=== PATIENT | female | born 1960 | race Caucasian/White ===

== ENCOUNTER 2018-01-15 16:06 | Emergency (ER) | payer SELFPAY ==
[~2018-01-15] VITALS: Ht 167.6 cm; Wt 61.8 kg
[~2018-01-15 16:06] MED LIST: HYDR-3533 PO; IBUP600 PO; Z.0.NO CURRENT MEDS
[2018-01-15 16:08] VITALS: BP 167/83; PULSE 91; RESP 16; TEMP 97.9; O2SAT 97
[2018-01-15 16:40] LABS: BILIRUBIN, URINE NEG (NEG); BLOOD, URINE LARGE (NEG); GLUCOSE,URINE NEG (NEG); KETONE, URINE NEG (NEG); NITRITE,URINE POS (NEG); URINE COLOR YELLOW (YELLW/STRAW); URINE LEUKOCYTE ESTERASE SMALL (NEG)
[2018-01-15 16:51] LABS: BACTERIA, URINE MOD /hpf
[2018-01-15] MEDS ORDERED: PHEN0.4T PO (16:58)
[2018-01-15] MEDS ORDERED: BACT800T5 PO (16:58)
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
== END 2018-01-15 17:21 | disposition home or self-care (01) ==
LOC: PHED 16:06
DX: N30.91 Cystitis, unspecified with hematuria (principal); B96.1 Klebsiella pneumoniae [K. pneumoniae] as the cause of diseases classified elsewhere; Z72.0 Tobacco use
CPT/HCPCS: 81001; 87077; 87086; 87186; 99283

== ENCOUNTER 2018-03-02 20:27 | Emergency (ER) | payer SELFPAY ==
[~2018-03-02] VITALS: Ht 167.6 cm; Wt 60.0 kg
[~2018-03-02 20:27] MED LIST changes: +BACT800T5 PO; -HYDR-3533 PO; -IBUP600 PO; +PHEN0.4T PO; -Z.0.NO CURRENT MEDS
[2018-03-02 20:32] VITALS: BP 138/73; PULSE 88; RESP 16; TEMP 98.8; O2SAT 98
--- NOTE | 2018-03-02 21:07 | PD ---
HPI Chief Complaint: Complaint Time Seen by Provider: 21:07 Travel History International Travel<30 days: No Contact w/Intl Traveler<30days: No Traveled to known affect area: No History of Present Illness HPI 57-year-old female came to the emergency room with history of dysuria, frequency and urgency. Patient says that she has had multiple UTIs and this feels like another UTI. This started this morning. She has been uncomfortable with it. Vital signs otherwise stable. [facility] Past Medical History Narrative Medical List of her past medical, surgical, social and family history is reviewed from the nursing note Genitourinary: Yes (UTI ) Influenza Vaccination: No Social History Alcohol Use: Yes Tobacco Use: Yes Substance Use: No Allergies-Medications (Allergen,Severity, Reaction): Coded Allergies: No Known Allergies (Unverified Adverse Reaction, Unknown, 03/02/18) Comments No known drug allergies. Reported Meds & Prescriptions Reported Meds & Active Scripts Active Macrobid (Nitrofurantoin Monoh/Nitrofur Macro) 100 Mg Cap 100 Mg PO BID 10 Days Narrative Medication List of her home medications reviewed from the nursing note. Review of Systems Except as stated in HPI: all other systems reviewed are Neg Genitourinary: Positive: Urgency, Frequency, Dysuria Physical Exam Narrative GENERAL: Awake, alert, anxious SKIN: Focused skin assessment warm/dry. HEAD: Atraumatic. Normocephalic. EYES: Pupils equal and round. No scleral icterus. No injection or drainage. ENT: No nasal bleeding or discharge. Mucous membranes pink and moist. NECK: Trachea midline. No JVD. CARDIOVASCULAR: Regular rate and rhythm. No murmur appreciated. RESPIRATORY: No accessory muscle use. Clear to auscultation. Breath sounds equal bilaterally. GASTROINTESTINAL: Abdomen soft, non-tender, nondistended. Hepatic and splenic margins not palpable. MUSCULOSKELETAL: No obvious deformities. No clubbing. No cyanosis. No edema. NEUROLOGICAL: Awake and alert. No obvious cranial nerve deficits. Motor grossly within normal limits. Normal speech. PSYCHIATRIC: Appropriate mood and affect; insight and judgment normal. Data Data Last Documented VS Vital Signs Date Time Temp Pulse Resp B/P (MAP) Pulse Ox O2 Delivery O2 Flow Rate FiO2 03/02/18 20:32 98.8 88 16 138/73 (94) 98 Orders Orders Urinalysis - C+S If Indicated (03/02/18 21:16) Phenazopyridine (Pyridium) (03/02/18 21:30) Nitrofurantoin Monohyd Macrocr (Macrobid (03/02/18 21:30) Urine Culture (03/02/18 21:36) Ed Discharge Order (03/02/18 22:09) Labs Laboratory Tests Test 03/02/18 21:36 Urine Color YELLOW Urine Turbidity CLOUDY Urine pH 6.0 Urine Specific [place] 1.022 Urine Protein 100 mg/dL Urine Glucose (UA) NEG mg/dL Urine Ketones TRACE mg/dL Urine Occult Blood LARGE Urine Nitrite POS Urine Bilirubin NEG Urine Urobilinogen LESS THAN 2.0 MG/DL Urine Leukocyte Esterase LARGE Urine RBC /hpf Urine WBC /hpf Urine WBC Clumps FEW Urine Squamous Epithelial Cells 2 /hpf Urine Bacteria MANY /hpf Urine Mucus FEW /lpf Microscopic Urinalysis Comment CULTURE INDICATED MDM Medical Decision Making Medical Screen Exam Complete: Yes Emergency Medical Condition: Yes Medical Record Reviewed: Yes Differential Diagnosis Cystitis, Narrative Course 10:18 PM UA is back and highly suggestive of UTI. She has been given p.o. Macrobid and p.o. Pyridium. I am comfortable discharging her home. Diagnosis Primary Impression: Hemorrhagic cystitis Referrals: Primary Care Physician Additional Instructions: Take medication as per the prescription direction. Drink lots of fluid and cranberry juice. You can take Tylenol/Motrin/Advil/ibuprofen in addition for pain relief. Return to the ER if condition worsens or any other new concerns. Med/Other Pt SpecificInfo: Prescription(s) given Scripts Nitrofurantoin Monohydrate Macrocrystals (Macrobid) 100 Mg Cap 100 MG PO BID for Infection for 10 Days, #20 CAP 0 Refills Prov: Glo Jiménez MD 03/02/18 Disposition: 01 DISCHARGE HOME Condition: Stable Glo Jiménez MD Mar 02, 2018 21:07
[2018-03-02] MEDS ORDERED: PHENAZOPYRIDINE HCL 100 MG TAB PO ONE (21:30)
[2018-03-02] MEDS ORDERED: NITROFURANTOIN MONOHYD MACROCR 100 MG CAP PO ONE (21:30)
[2018-03-02 22:03] LABS: BACTERIA, URINE MANY /hpf; BILIRUBIN, URINE NEG (NEG); BLOOD, URINE LARGE (NEG); GLUCOSE,URINE NEG (NEG); KETONE, URINE TRACE mg/dL (NEG); MUCUS URINE FEW /lpf (OCC); NITRITE,URINE POS (NEG); SQUAMOUS EPITHELIAL CELL URINE 2 /hpf (0-5); URINE COLOR YELLOW (YELLW/STRAW); URINE LEUKOCYTE ESTERASE LARGE (NEG); WHITE BLOOD CELL CLUMPS FEW
[2018-03-02] MEDS ORDERED: MACR100C2 PO (22:19)
== END 2018-03-02 22:33 | disposition home or self-care (01) ==
LOC: NEPD 20:27
DX: N30.91 Cystitis, unspecified with hematuria (principal); B96.1 Klebsiella pneumoniae [K. pneumoniae] as the cause of diseases classified elsewhere; Z72.0 Tobacco use; Z87.440 Personal history of urinary (tract) infections
CPT/HCPCS: 81001; 87077; 87086; 87186; 99283

== ENCOUNTER 2018-06-01 10:43 | Inpatient (IN) ==
[2018-06-01] MEDS ORDERED: Piperacil/Tazo 3.375 GM Premix 50 ML IV.SIG ONE (10:58)
[2018-06-01] MEDS ORDERED: Sod Chloride 0.9% Inj 1,000 ML IV.SIG ONE ×2 (10:58→13:27)
[2018-06-01] MEDS ORDERED: Vancomycin Inj 1 GM/200 ML PIGGYBACK IV.SIG ONE (10:58)
--- NOTE | 2018-06-01 11:20 | XR ---
EXAM DATE: 06/01/2018 11:15 AM EDT AGE/SEX: 57 years / Female INDICATIONS: Shortness of breath. Fever. CLINICAL DATA: This is the patient's initial encounter. Patient reports that signs and symptoms have been present for 1 day and indicates a pain score of Nonresponsive. MEDICAL/SURGICAL HISTORY: None. . ORIF Left tibia. ORIF right humerus. COMPARISON: No prior exams available for comparison. FINDINGS: A single AP view of the chest demonstrates interstitial densities without evidence of mass, infiltrat e or effusion. The cardiomediastinal contours are unremarkable. Osseous structures are intact. [place] te and screws along the right humerus. CONCLUSION: Chronic appearing interstitial densities. No acute cardiopulmonary disease Electronically signed by: Nitin Cisneros MD 06/01/2018 11:19 AM EDT
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
[2018-06-01] MEDS ORDERED: Vancomycin Inj 1,000 MG in Sodium Chlor 0.9% Inj 250 ML IV.SIG ONE (12:00)
[2018-06-01 12:02] LABS: Baso # (Auto) 0.1 th/mm3 (0.0-0.2); Baso % (Auto) 0.4 % (0.0-2.0); Eos # (Auto) 0.5 th/mm3 (0.0-0.4); Eos % (Auto) 2.9 % (0.0-4.0); Hemoglobin 11.5 gm/dL (11.6-15.3); Lymph # (Auto) 0.3 th/mm3 (1.0-4.8); Lymph % (Auto) 2.2 % (9.0-44.0); Mean Corpuscular HGB Conc 33.9 % (32.0-36.0); Mean Corpuscular Hemoglobin 31.2 pg (27.0-34.0); Mean Corpuscular Volume 91.9 fL (80.0-100.0); Mean Platelet Volume 10.3 fL (7.0-11.0); Mono # (Auto) 0.2 th/mm3 (0.0-0.9); Mono % (Auto) 1.1 % (0.0-8.0); Neut # (Auto) 14.6 th/mm3 (1.8-7.7); Neut % (Auto) 93.4 % (16.0-70.0); Platelet Count 133 th/mm3 (150-450); Red Cell Distribution Width 13.6 % (11.6-17.2); White Blood Count 15.7 th/mm3 (4.0-11.0)
[2018-06-01 12:05] LABS: Bacteria,Urine Few /hpf; Bilirubin,Urine Negative (Negative); Clarity,Urine Hazy (Clear); Color,Urine Yellow (Yellw/Straw); Glucose,Urine (UA) Negative (Negative); Hyaline Casts,Urine 3 /lpf (0-3); Leukocyte Esterase,Urine Trace (Negative); Nitrite,Urine Negative (Negative); Specific Gravity,Urine 1.015 (1.002-1.035); Squamous Epithelial Cell,Urine 1 /hpf (0-5)
[2018-06-01 12:14] LABS: Alanine Aminotransferase 23 U/L (10-53); Albumin 2.7 g/dL (3.4-5.0); Alkaline Phosphatase 159 U/L (45-117); Anion Gap 11 meq/L (5-15); Aspartate Aminotransferase 31 U/L (15-37); Blood Urea Nitrogen 54 mg/dL (7-18); Calcium 8.5 mg/dL (8.5-10.1); Carbon Dioxide 23.5 meq/L (21.0-32.0); Chloride 102 meq/L (98-107); Glomerular Filtration Rate 10 mL/min (>89); Glucose,Random 73 mg/dL (74-106); Potassium 4.5 meq/L (3.5-5.1); Sodium 136 meq/L (136-145); Total Protein 6.4 g/dL (6.4-8.2)
--- NOTE | 2018-06-01 12:22 | CT ---
EXAM DATE: 06/01/2018 12:19 PM EDT AGE/SEX: 57 years / Female INDICATIONS: Altered mental status. CLINICAL DATA: This is the patient's initial encounter. Patient reports that signs and symptoms have been present for 1 day and indicates a pain score of Nonresponsive. MEDICAL/SURGICAL HISTORY: Non-responsive. Non-responsive. RADIATION DOSE: 38.09 CTDI (mGy) COMPARISON: No prior exams available for comparison. TECHNIQUE: CT of the head without contrast. Using automated exposure control and adjustment of the mA and/or kV according to patient size, radiation dose was kept as low as reasonably achievable to ob tain optimal diagnostic quality images. DICOM format image data is available electronically for revi ew and comparison. FINDINGS: Cerebrum: The ventricles are normal for age. No evidence of midline shift, mass lesion, hemorrhage or acute infarction. No extraaxial fluid collections are seen. Posterior Fossa: The cerebellum and brainstem are intact. The 4th ventricle is midline. Questionabl e lesion right cerebellopontine angle. Extracranial: The visualized portion of the orbits is intact. Skull: The calvaria is intact. No evidence of skull fracture. CONCLUSION: 1. No acute intracranial evaluate. 2. Questionable lesion in the right cerebellopontine angle. Consider outpatient contrasted MRI for f urther evaluation. . Electronically signed by: Nitin Cisneros MD 06/01/2018 12:20 PM EDT
--- NOTE | 2018-06-01 12:43 | CT ---
EXAM DATE: 06/01/2018 12:24 PM EDT AGE/SEX: 57 years / Female INDICATIONS: Right lower abdomen pain today. CLINICAL DATA: This is the patient's initial encounter. Patient reports that signs and symptoms have been present for 1 day and indicates a pain score of Nonresponsive. MEDICAL/SURGICAL HISTORY: Non-responsive. Non-responsive. RADIATION DOSE: 11.42 CTDI (mGy) COMPARISON: No prior exams available for comparison. TECHNIQUE: Multiple contiguous axial images were obtained through the abdomen. Images were obtained using multiple row detector helical technique. Using automated exposure control and adjustment of the mA and/or kV according to patient size, radiation dose was kept as low as reasonably achievable to o btain optimal diagnostic quality images. DICOM format image data is available electronically for rev iew and comparison. FINDINGS: Lower Lungs: Minimal bibasilar densities. Liver: The liver has a homogeneous density without space-occupying lesion. There is no dilation of th e biliary tree. Spleen: Homogeneous density without enlargement. Pancreas: Unremarkable without mass or calcification. Kidneys: Normal in size and shape. No evidence of mass or hydronephrosis on the left. Hydronephrosis right kidney secondary to a ureteropelvic junction calculus measuring 1 cm.. Adrenal Glands: Unremarkable. Aorta: The aorta and proximal iliac vessels are grossly unremarkable without aneurysmal dilation. Bowel/Mesentery: The bowel loops are grossly unremarkable. The cecum and sigmoid colon have a normal configuration. Abdominal Wall: Intact. Retroperitoneum: No evidence of adenopathy in the retrocrural, para-aortic, or deep pelvic regions. Bladder: Contours are smooth. Reproductive Organs: No abnormal masses or calcifications seen. Inguinal: The inguinal region is unremarkable without evidence of adenopathy. Bony Structures: Unremarkable. CONCLUSION: 1. Obstructive uropathy on the right secondary to a ureteropelvic junction calculus measuring 1 cm. 2. Minimal bibasilar densities likely atelectasis. Electronically signed by: Nitin Cisneros MD 06/01/2018 12:42 PM EDT
[2018-06-01 13:02] LABS: Activated Partial Thrombo Time 37.3 sec (24.3-30.1); INR 1.5 Ratio; Prothrombin Time 14.7 sec (9.8-11.6)
[2018-06-01 13:18] LABS: Lymphocytes 1 % (9-44); Monocytes 1 % (0-8); Platelet Morphology Normal (Normal); Toxic Granulation 1+; Toxic Vacuolation Present
[2018-06-01 13:19] LABS: Acanthocytes Occ; Burr Cells 2+
[2018-06-01] MEDS ORDERED: Sod Chloride 0.9% Inj 1,000 ML IV.CONT SCH ×2 (14:08→15:25)
--- NOTE | 2018-06-01 14:18 | NM ---
EXAM DATE: 06/01/2018 2:11 PM EDT AGE/SEX: 57 years / Female INDICATIONS: Shortness of breath for one day. CLINICAL DATA: This is the patient's initial encounter. Patient reports that signs and symptoms have been present for 1 day and indicates a pain score of 0/10. MEDICAL/SURGICAL HISTORY: Non-responsive. Non-responsive. COMPARISON: [facility], CHEST 1V SINGLE AP, 06/01/2018. . No external comparison. DOSE: 1.05 mCi Tc99m DTPA aerosol 8.7 mCi Tc99m MAA IV TECHNIQUE: Following five minutes of tidal breathing of DTPA aerosol, planar images of the lungs wer e performed in eight projections. The patient was then injected with MAA, and eight-view perfusion s can was performed. FINDINGS: There is a homogeneous pattern of aerosol delivery to the periphery of both lungs. There is moderate central deposition of aerosol suggesting obstructive airways disease. No focal ventilatory defects ar e seen. The perfusion lung scan demonstrates a homogenous pattern of uptake in both lungs. No segmental or s ubsegmental defects are seen. CONCLUSION: 1. Low probability pulmonary embolism. Electronically signed by: Artemio Esteves MD 06/01/2018 2:17 PM EDT
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
--- NOTE | 2018-06-01 15:33 | P.PNADD ---
Addendum to Inpatient Note Reason for Addendum: Additional Documentation (patient was re-examined- patient is now hypotensive despite IV bolus. case was d/w both ER physician and the manager surgery oil exploration engineer. patient will be upgarded to ICU- with the impression of septic shock- with manager surgery consult. time spent for critical care 35 minutes. )
[2018-06-01] MEDS ORDERED: fentaNYL Citrate Inj 100 MCG/2 ML Ampul ONE ×2 (16:13→17:00)
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
[2018-06-01] MEDS ORDERED: Gabapentin 300 MG Capsule PO SCH (18:00)
[2018-06-01] MEDS ORDERED: Piperacil/Tazo 3.375 GM Premix 50 ML IV.SIG SCH (18:00)
[2018-06-01] MEDS ORDERED: Piperacil/Tazo 2.25 GM Premix 50 ML IV.SIG SCH (18:00)
[2018-06-01] MEDS ORDERED: Iohexol 350 MG/ML 50 ML Vial (for Rad Diag) IVCONTRAST ONE (18:52)
[2018-06-01] MEDS ORDERED: Vancomycin Consult Pharmacy 1 EACH OTHER SCH (19:00)
[2018-06-01] MEDS: Lactobacillus Acidophilus/L. Spores Tablet PO SCH (19:56)
[2018-06-01 20:00] LABS: ABG Base Excess -5.9 mmol/L (-2-2); ABG PCO2 36 mmHg (38-42); ABG PO2 144 mmHg (61-120)
[2018-06-01] MEDS ORDERED: Vancomycin Inj 1,250 MG in Sodium Chlor 0.9% Inj 250 ML IV.SIG ONE (20:00)
[2018-06-01] MEDS ORDERED: Phenylephrine Inj 40 MG in Dextrose 5% in Water Inj 496 ML IV.CONT PRN ×2 (20:59)
[2018-06-01] MEDS ORDERED: Metoprolol Tartrate 25 MG Tablet PO SCH (21:00)
[2018-06-01] MEDS ORDERED: Albumin Human 25% Inj 100 ML IV.SIG ONE (21:00)
[2018-06-01] MEDS ORDERED: Famotidine 20 MG Tablet PO SCH (21:00)
[2018-06-01 22:04] LABS: Hematocrit 28.1 % (35.0-46.0); Hemoglobin 9.2 gm/dL (11.6-15.3); Mean Corpuscular HGB Conc 32.9 % (32.0-36.0); Mean Corpuscular Hemoglobin 31.4 pg (27.0-34.0); Mean Corpuscular Volume 95.2 fL (80.0-100.0); Mean Platelet Volume 9.7 fL (7.0-11.0); Platelet Count 60 th/mm3 (150-450); Red Blood Count 2.95 mil/mm3 (4.00-5.30); Red Cell Distribution Width 13.6 % (11.6-17.2); White Blood Count 11.2 th/mm3 (4.0-11.0)
[2018-06-02] MEDS: Piperacil/Tazo 3.375 GM Premix 50 ML IV.SIG SCH ×3 (00:17→15:53)
[2018-06-02] MEDS ORDERED: Pharmacy Ordered Lab Info OTHER ONE (05:00)
[2018-06-02 05:08] LABS: Hematocrit 25.4 % (35.0-46.0); Hemoglobin 8.4 gm/dL (11.6-15.3); Mean Corpuscular Volume 93.7 fL (80.0-100.0); Mean Platelet Volume 10.8 fL (7.0-11.0); Platelet Count 41 th/mm3 (150-450); Red Blood Count 2.71 mil/mm3 (4.00-5.30); Red Cell Distribution Width 13.8 % (11.6-17.2); White Blood Count 14.4 th/mm3 (4.0-11.0)
[2018-06-02 05:42] LABS: Calcium 7.9 mg/dL (8.5-10.1); Carbon Dioxide 21.9 meq/L (21.0-32.0); Potassium 4.5 meq/L (3.5-5.1); Vancomycin,Trough 16.5 mcg/mL (5.0-10.0)
[2018-06-02 07:34] LABS: Lymphocytes 13 % (9-44); Monocytes 4 % (0-8); Platelet Morphology Normal (Normal)
[2018-06-02 07:39] LABS: Acanthocytes Occ; Burr Cells 1+; Dohle Bodies Present
[2018-06-02] MEDS: Lactobacillus Acidophilus/L. Spores Tablet PO SCH ×3 (09:32→18:01)
[2018-06-02] MEDS: Famotidine 20 MG Tablet PO SCH (09:33)
[2018-06-02] MEDS ORDERED: Vancomycin Inj 1,250 MG in Sodium Chlor 0.9% Inj 250 ML IV.SIG ONE (10:00)
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
--- NOTE | 2018-06-02 15:31 | ECG ---
Date Performed: 06/01/2018 Time Performed: 12:12:04 PTAGE: 57 years EKG: Sinus rhythm NORMAL ECG NO PREVIOUS TRACING DOCTOR: Camron Moreno Interpretating Date/Time 06/02/2018 15:30:07
[2018-06-02] MEDS: Acetaminophen 325 MG Tablet PO PRN ×2 (16:01→21:18)
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
[2018-06-03] MEDS: Piperacil/Tazo 3.375 GM Premix 50 ML IV.SIG SCH ×3 (00:17→18:04)
[2018-06-03 06:11] LABS: Baso # (Auto) 0.1 th/mm3 (0.0-0.2); Baso % (Auto) 0.4 % (0.0-2.0); Eos # (Auto) 0.1 th/mm3 (0.0-0.4); Eos % (Auto) 0.6 % (0.0-4.0); Hematocrit 28.9 % (35.0-46.0); Hemoglobin 9.5 gm/dL (11.6-15.3); Lymph % (Auto) 6.4 % (9.0-44.0); Mean Corpuscular HGB Conc 32.8 % (32.0-36.0); Mean Corpuscular Hemoglobin 30.3 pg (27.0-34.0); Mean Corpuscular Volume 92.4 fL (80.0-100.0); Mean Platelet Volume 10.5 fL (7.0-11.0); Mono # (Auto) 0.8 th/mm3 (0.0-0.9); Mono % (Auto) 4.9 % (0.0-8.0); Neut % (Auto) 87.7 % (16.0-70.0); Platelet Count 35 th/mm3 (150-450); Red Blood Count 3.12 mil/mm3 (4.00-5.30); Red Cell Distribution Width 13.9 % (11.6-17.2)
[2018-06-03 06:39] LABS: Alanine Aminotransferase 15 U/L (10-53); Albumin 2.1 g/dL (3.4-5.0); Alkaline Phosphatase 153 U/L (45-117); Anion Gap 15 meq/L (5-15); Aspartate Aminotransferase 15 U/L (15-37); Blood Urea Nitrogen 38 mg/dL (7-18); Calcium 8.4 mg/dL (8.5-10.1); Carbon Dioxide 16.8 meq/L (21.0-32.0); Chloride 112 meq/L (98-107); Glomerular Filtration Rate 30 mL/min (>89); Glucose,Random 71 mg/dL (74-106); Potassium 3.8 meq/L (3.5-5.1); Sodium 144 meq/L (136-145); Total Protein 5.4 g/dL (6.4-8.2)
--- NOTE | 2018-06-03 08:41 | P.PNURO ---
Subjective Patient symptoms today: Pt seen and examined. Feeling better this AM. Urine clearing from right PCNT. Objective Vital Signs: Vital Signs 06/02/18 09:00 06/02/18 12:00 06/02/18 15:02 Temperature 97.7 F Pulse Rate 85 88 Respiratory Rate 24 Blood Pressure 123/70 Pulse Oximetry 94 L 95 06/02/18 16:00 06/02/18 18:00 06/02/18 20:00 Temperature 98.7 F 98.4 F Pulse Rate 83 80 88 Respiratory Rate 22 24 Blood Pressure 115/67 116/67 Pulse Oximetry 93 L 96 06/02/18 22:00 06/03/18 00:00 06/03/18 02:00 Temperature 97.5 F L Pulse Rate 90 94 H 94 H Respiratory Rate 32 H Blood Pressure 109/64 Pulse Oximetry 94 L 06/03/18 02:02 06/03/18 04:00 06/03/18 06:00 Temperature Pulse Rate 83 88 Respiratory Rate 24 29 H Blood Pressure 115/68 Pulse Oximetry 97 Intake & Output 06/02/18 06/03/18 06/03/18 18:59 06:59 18:59 Intake Total 1602.5 / 1602.5 1000 / 1000 Output Total 640 / 640 40 / 40 Balance 962.5 / 962.5 960 / 960 Weight 72.3 kg Intake: IV 1362.5 / 1362.5 1000 / 1000 LR 1000 mL Inj 1,000 ML @ 125 1000 / 1000 1000 / 1000 mls/hr IV.SIG .Q8H [facility] Rx#: [id number] Zosyn 3.375 GM Premix 50 ML @ 100 / 100 100 mls/hr IV.SIG Q8H [facility] Rx#: [id number] Vancomycin Inj 1,250 MG In NS 262.5 / 262.5 Inj 250 ML @ 250 mls/hr IV.SIG ONCE ONE Rx#:[id number] Oral 240 / 240 Output: Urine Amount (Catheter) 420 / 420 40 / 40 Indwelling Urethral Catheter 420 / 420 40 / 40 Wound Drainage 220 / 220 Right Posterior Back 220 / 220 Other: Date of Last Bowel Movement 06/02/18 Result Diagrams: 06/03/18 05:07 06/03/18 05:07 Imaging: Impressions Nephrostomy 06/01/18 00:00 CONCLUSION: 1. Uncomplicated nephrostomy tube placement as above. Medications and IVs: Active Medications Generic Name Dose Route Start Last Admin Trade Name Freq PRN Reason Stop Dose Admin Acetaminophen 650 mg 06/01/18 14:53 06/02/18 21:18 Tylenol PO 650 mg Q4H PRN Administration pain or temp >101 Famotidine 20 mg 06/02/18 09:00 06/02/18 09:33 Pepcid PO 20 mg DAILY [facility] Administration Gabapentin 300 mg 06/01/18 18:00 Neurontin PO TID [facility] Piperacillin/Tazobactam/Dextrose 50 mls @ 100 mls/hr 06/02/18 00:00 06/03/18 00:17 Zosyn 3.375 Gm Premix IV.SIG 100 mls/hr Q8H [facility] Administration Pharmacy Profile Note 0 mls @ 0 mls/hr 06/01/18 19:00 Vancomycin Consult Pharmacy OTHER UNSCH [facility] As Directed Phenylephrine HCl 40 mg/ 500 mls @ 30 mls/hr 06/01/18 20:59 06/02/18 05:59 Dextrose IV.CONT 0 mcg/min TITRATE PRN 0 mls/hr Per Protocol Titration Protocol 40 MCG/MIN Lactated Ringer's 1,000 mls @ 125 mls/hr 06/01/18 23:00 06/03/18 00:17 Lr 1000 Ml Inj IV.SIG 125 mls/hr .Q8H [facility] Administration Lactobacillus Acidophilus 1 tab 06/01/18 18:00 06/02/18 18:01 Lactinex PO Not Given TID [facility] Ondansetron HCl 4 mg 06/01/18 14:53 Zofran Inj IV.PUSH Q8H PRN nausea Terbutaline Sulfate 1 mg 06/01/18 20:59 Brethine Inj SQ UNSCH PRN For Extravasation Objective Remarks: Abd:soft,nt,nd Urine clearing from right PCNT. Assessment and Plan - Plan 57 y.o female with probable urosepsis and negative urine and blood cultures Continue IV abx Maintain foely and PCNT For internalization with right JJ stent per IR this week.
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
[2018-06-03 08:54] LABS: Burr Cells 1+; Lymphocytes 5 % (9-44); Monocytes 2 % (0-8); Platelet Morphology Normal (Normal)
[2018-06-03 08:55] LABS: Acanthocytes Occ
[2018-06-03] MEDS: Famotidine 20 MG Tablet PO SCH (11:29)
[2018-06-03] MEDS: Acetaminophen 325 MG Tablet PO PRN ×2 (11:29→21:30)
[2018-06-03] MEDS: Lactobacillus Acidophilus/L. Spores Tablet PO SCH ×3 (11:29→18:04)
[2018-06-03] MEDS ORDERED: Vancomycin Inj 1,250 MG in Sodium Chlor 0.9% Inj 250 ML IV.SIG ONE (13:00)
[2018-06-03 20:47] LABS: Activated Partial Thrombo Time 26.1 sec (24.3-30.1); INR 1.2 Ratio; Prothrombin Time 12.3 sec (9.8-11.6)
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
[2018-06-04] MEDS: Piperacil/Tazo 3.375 GM Premix 50 ML IV.SIG SCH ×3 (03:42→18:40)
[2018-06-04 05:28] LABS: Baso % (Auto) 0.2 % (0.0-2.0); Eos % (Auto) 0.1 % (0.0-4.0); Hematocrit 32.7 % (35.0-46.0); Hemoglobin 10.8 gm/dL (11.6-15.3); Lymph # (Auto) 1.2 th/mm3 (1.0-4.8); Mean Corpuscular HGB Conc 32.9 % (32.0-36.0); Mean Corpuscular Hemoglobin 30.5 pg (27.0-34.0); Mean Corpuscular Volume 92.5 fL (80.0-100.0); Mean Platelet Volume 9.8 fL (7.0-11.0); Mono # (Auto) 1.4 th/mm3 (0.0-0.9); Mono % (Auto) 9.9 % (0.0-8.0); Neut # (Auto) 11.1 th/mm3 (1.8-7.7); Neut % (Auto) 80.8 % (16.0-70.0); Platelet Count 37 th/mm3 (150-450); Red Blood Count 3.54 mil/mm3 (4.00-5.30); White Blood Count 13.8 th/mm3 (4.0-11.0)
[2018-06-04 05:49] LABS: Calcium 8.7 mg/dL (8.5-10.1); Carbon Dioxide 16.5 meq/L (21.0-32.0); Potassium 3.2 meq/L (3.5-5.1)
[2018-06-04 05:52] LABS: Vancomycin,Random 19.3 Comment
[2018-06-04] MEDS: Acetaminophen 325 MG Tablet PO PRN ×2 (06:19→20:07)
[2018-06-04 08:02] LABS: Lymphocytes 4 % (9-44); Monocytes 5 % (0-8); Myelocytes 1 % (0-0); Platelet Morphology Normal (Normal)
[2018-06-04 08:04] LABS: Acanthocytes Occ
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
[2018-06-04] MEDS: Lactobacillus Acidophilus/L. Spores Tablet PO SCH ×3 (09:20→18:40)
[2018-06-04] MEDS: Famotidine 20 MG Tablet PO SCH (09:20)
--- NOTE | 2018-06-04 10:11 | P.PNURO ---
Subjective Patient symptoms today: Pt seen and examined. C/O SOB. O2 sat is fine. Objective Vital Signs: Vital Signs 06/03/18 12:00 06/03/18 14:00 06/03/18 16:00 Temperature 98.1 F 98 F Pulse Rate 120 H 120 H 104 H Respiratory Rate 43 H 38 H Blood Pressure 121/72 123/74 Pulse Oximetry 97 96 06/03/18 18:00 06/03/18 20:00 06/03/18 22:00 Temperature 98.3 F Pulse Rate 120 H 102 H 100 H Respiratory Rate 20 Blood Pressure 125/80 Pulse Oximetry 95 06/04/18 00:00 06/04/18 02:00 06/04/18 04:00 Temperature 98.3 F 98.3 F Pulse Rate 99 H 98 H 98 H Respiratory Rate 20 27 H Blood Pressure 124/75 116/74 Pulse Oximetry 102 H 98 06/04/18 06:00 06/04/18 09:36 Temperature Pulse Rate 94 H 114 H Respiratory Rate 32 H Blood Pressure Pulse Oximetry 96 Intake & Output 06/03/18 06/04/18 06/04/18 18:59 06:59 18:59 Intake Total 1100 / 1100 Balance 1100 / 1100 Intake: IV 1100 / 1100 LR 1000 mL Inj 1,000 ML @ 30 1000 / 1000 mls/hr IV.SIG .Q24H AIRAM Rx#: [id number] Zosyn 3.375 GM Premix 50 ML @ 100 / 100 100 mls/hr IV.SIG Q8H AIRAM Rx#: [id number] Other: Date of Last Bowel Movement 06/02/18 06/02/18 Result Diagrams: 06/04/18 04:07 06/04/18 04:07 Imaging: Impressions Chest X-Ray 06/04/18 00:00 CONCLUSION: 1. Diffuse interstitial infiltrates consistent with moderate pulmonary edema versus pneumonia. Clinical correlation is recommended. 2. Small bilateral pleural effusions. Medications and IVs: Active Medications Generic Name Dose Route Start Last Admin Trade Name Freq PRN Reason Stop Dose Admin Acetaminophen 650 mg 06/01/18 14:53 06/04/18 06:19 Tylenol PO 650 mg Q4H PRN Administration pain or temp >101 Albuterol 1 ampul 06/04/18 08:06 06/04/18 09:30 Duoneb Neb (Prn) NEB 1 ampul Q4HR NEB PRN Administration sob/ wheezing Famotidine 20 mg 06/02/18 09:00 06/04/18 09:20 Pepcid PO 20 mg DAILY AIRAM Administration Gabapentin 300 mg 06/01/18 18:00 Neurontin PO TID AIRAM Piperacillin/Tazobactam/Dextrose 50 mls @ 100 mls/hr 06/02/18 00:00 06/04/18 09:20 Zosyn 3.375 Gm Premix IV.SIG 100 mls/hr Q8H AIRAM Administration Pharmacy Profile Note 0 mls @ 0 mls/hr 06/01/18 19:00 Vancomycin Consult Pharmacy OTHER [facility] As Directed Phenylephrine HCl 40 mg/ 500 mls @ 30 mls/hr 06/01/18 20:59 06/02/18 05:59 Dextrose IV.CONT 0 mcg/min TITRATE PRN 0 mls/hr Per Protocol Titration Protocol 40 MCG/MIN Lactated Ringer's 1,000 mls @ 30 mls/hr 06/01/18 23:00 06/03/18 11:29 Lr 1000 Ml Inj IV.SIG 125 mls/hr .Q24H AIRAM Administration Lactobacillus Acidophilus 1 tab 06/01/18 18:00 06/04/18 09:20 Lactinex PO 1 tab TID AIRAM Administration Ondansetron HCl 4 mg 06/01/18 14:53 Zofran Inj IV.PUSH Q8H PRN nausea Potassium Chloride 40 meq 06/04/18 13:00 K-Dur PO 06/04/18 13:01 ONCE ONE Terbutaline Sulfate 1 mg 06/01/18 20:59 Brethine Inj SQ UNSCH PRN For Extravasation Objective Remarks: Abd:soft,nt,nd Urine clearing from right PCNT. 06/04 Abd:soft,nt,nd Urine clearing from right PCNT. Assessment and Plan - Plan 57 y.o female with probable urosepsis and negative urine and blood cultures Continue IV abx Maintain foely and PCNT For internalization with right JJ stent per IR this week. 06/04 57 y.o female with probable urosepsis and negative urine and blood cultures Continue IV abx Maintain foely and PCNT For internalization with right JJ stent per IR this week.
[2018-06-04] MEDS: Vancomycin Inj 1,250 MG in Sodium Chlor 0.9% Inj 250 ML IV.SIG SCH (14:30)
--- NOTE | 2018-06-04 15:16 | P.PNONC ---
Subjective Interval history: c/o SOB and wheezing . RN is pushing LASIX now Objective Vital Signs/Intake & Output: Vital Signs 06/03/18 16:00 06/03/18 18:00 06/03/18 20:00 Temperature 98 F 98.3 F Pulse Rate 104 H 120 H 102 H Respiratory Rate 38 H 20 Blood Pressure 123/74 125/80 Pulse Oximetry 96 95 06/03/18 22:00 06/04/18 00:00 06/04/18 02:00 Temperature 98.3 F Pulse Rate 100 H 99 H 98 H Respiratory Rate 20 Blood Pressure 124/75 Pulse Oximetry 102 H 06/04/18 04:00 06/04/18 06:00 06/04/18 08:00 Temperature 98.3 F 98.5 F Pulse Rate 98 H 94 H 98 H Respiratory Rate 27 H 27 H Blood Pressure 116/74 116/74 Pulse Oximetry 98 98 06/04/18 09:36 Temperature Pulse Rate 114 H Respiratory Rate 32 H Blood Pressure Pulse Oximetry 96 Intake & Output 06/03/18 06/04/18 06/04/18 18:59 06:59 18:59 Intake Total 1100 / 1100 Balance 1100 / 1100 Intake: IV 1100 / 1100 LR 1000 mL Inj 1,000 ML @ 30 1000 / 1000 mls/hr IV.SIG .Q24H AIRAM Rx#: [id number] Zosyn 3.375 GM Premix 50 ML @ 100 / 100 100 mls/hr IV.SIG Q8H AIRAM Rx#: [id number] Other: Date of Last Bowel Movement 06/02/18 06/02/18 06/02/18 Result Diagrams: 06/04/18 04:07 06/04/18 04:07 Laboratory Results: Laboratory Results - last 24 hr 06/03/18 06/03/18 06/04/18 18:45 18:45 04:07 WBC 13.8 H RBC 3.54 L Hgb 10.8 L Hct 32.7 L MCV 92.5 MCH 30.5 MCHC 32.9 RDW 14.0 Plt Count 37 L MPV 9.8 Prelim Diff (Auto) Slide review pending Neut % (Auto) 80.8 H Lymph % (Auto) 9.0 [place] % (Auto) 9.9 H Eos % (Auto) 0.1 Baso % (Auto) 0.2 Neut # (Auto) 11.1 H Lymph # (Auto) 1.2 [place] # (Auto) 1.4 H Eos # (Auto) 0.0 Baso # (Auto) 0.0 WBC Differential Manual diff final Seg Neuts % (Manual) 84 H Band Neuts % (Manual) 6 Lymphocytes % (Manual) 4 L Monocytes % (Manual) 5 Myelocytes % (Man) 1 H Abs Neuts (Manual) 12.6 H Differential Comment . Platelet Estimate Low L Platelet Morphology Normal Acanthocytes (Spur) Occ H PT 12.3 H INR 1.2 APTT 26.1 Fibrinogen 678 H D-Dimer Quant (PE/DVT) 4.80 H Sodium Potassium Chloride Carbon Dioxide Anion Gap BUN Creatinine Estimated GFR Random Glucose Calcium Random Vancomycin 06/04/18 04:07 WBC RBC Hgb Hct MCV MCH MCHC RDW Plt Count MPV Prelim Diff (Auto) Neut % (Auto) Lymph % (Auto) [place] % (Auto) Eos % (Auto) Baso % (Auto) Neut # (Auto) Lymph # (Auto) [place] # (Auto) Eos # (Auto) Baso # (Auto) WBC Differential Seg Neuts % (Manual) Band Neuts % (Manual) Lymphocytes % (Manual) Monocytes % (Manual) Myelocytes % (Man) Abs Neuts (Manual) Differential Comment Platelet Estimate Platelet Morphology Acanthocytes (Spur) PT INR APTT Fibrinogen D-Dimer Quant (PE/DVT) Sodium 147 H Potassium 3.2 L Chloride 112 H Carbon Dioxide 16.5 L Anion Gap 19 H BUN 29 H Creatinine 1.26 H Estimated GFR 43 L Random Glucose 103 Calcium 8.7 Random Vancomycin 19.3 Culture Results: Microbiology 06/01/18 11:21 Aerobic Blood Culture - Preliminary Blood - Peripheral No growth in 3 days Anaerobic Blood Culture - Preliminary No growth in 3 days 06/01/18 11:18 Aerobic Blood Culture - Preliminary Blood - Peripheral No growth in 3 days Anaerobic Blood Culture - Preliminary No growth in 3 days 06/01/18 11:41 Urine Culture - Final Catheterized Urine No growth in 48 hours Imaging Studies: Impressions Chest X-Ray 06/04/18 00:00 CONCLUSION: 1. Diffuse interstitial infiltrates consistent with moderate pulmonary edema versus pneumonia. Clinical correlation is recommended. 2. Small bilateral pleural effusions. Medications: Active Medications Generic Name Dose Route Start Last Admin Trade Name Freq PRN Reason Stop Dose Admin Acetaminophen 650 mg 06/01/18 14:53 06/04/18 06:19 Tylenol PO 650 mg Q4H PRN Administration pain or temp >101 Albuterol 1 ampul 06/04/18 08:06 06/04/18 09:30 Duoneb Neb (Prn) NEB 1 ampul Q4HR NEB PRN Administration sob/ wheezing Famotidine 20 mg 06/02/18 09:00 06/04/18 09:20 Pepcid PO 20 mg DAILY AIRAM Administration Piperacillin/Tazobactam/Dextrose 50 mls @ 100 mls/hr 06/02/18 00:00 06/04/18 09:20 Zosyn 3.375 Gm Premix IV.SIG 100 mls/hr Q8H AIRAM Administration Phenylephrine HCl 40 mg/ 500 mls @ 30 mls/hr 06/01/18 20:59 06/02/18 05:59 Dextrose IV.CONT 0 mcg/min TITRATE PRN 0 mls/hr Per Protocol Titration Protocol 40 MCG/MIN Lactated Ringer's 1,000 mls @ 30 mls/hr 06/01/18 23:00 06/03/18 11:29 Lr 1000 Ml Inj IV.SIG 125 mls/hr .Q24H AIRAM Administration Lactobacillus Acidophilus 1 tab 06/01/18 18:00 06/04/18 12:46 Lactinex PO 1 tab TID AIRAM Administration Objective Remarks: GENERAL: Well-nourished, well-developed patient. SKIN: Warm and dry. HEAD: Normocephalic. EYES: No scleral icterus. No injection or drainage. NECK: C-collar LYMPHATIC: No adenopathy. CARDIOVASCULAR: Regular rate and rhythm without murmurs. RESPIRATORY: wheezes and crackles. GASTROINTESTINAL: Abdomen soft, non-tender, nondistended. EXTREMITIES: No cyanosis, or edema. NEUROLOGICAL: Awake, alert, and oriented x3. PSYCHIATRIC: anxious Assessment/Plan (1) Thrombocytopenia Code(s): D69.6 - Thrombocytopenia, unspecified Status: Acute - Plan Thsi is due to severe sepsis. Recommend to monitor plat. No DIC at this time. will follow prn.
[2018-06-05] MEDS: Piperacil/Tazo 3.375 GM Premix 50 ML IV.SIG SCH ×3 (00:38→15:54)
[2018-06-05 06:00] LABS: Baso % (Auto) 0.3 % (0.0-2.0); Eos # (Auto) 0.1 th/mm3 (0.0-0.4); Eos % (Auto) 0.6 % (0.0-4.0); Hematocrit 27.9 % (35.0-46.0); Hemoglobin 9.4 gm/dL (11.6-15.3); Lymph # (Auto) 1.8 th/mm3 (1.0-4.8); Lymph % (Auto) 13.2 % (9.0-44.0); Mean Corpuscular HGB Conc 33.7 % (32.0-36.0); Mean Corpuscular Hemoglobin 30.8 pg (27.0-34.0); Mean Corpuscular Volume 91.3 fL (80.0-100.0); Mean Platelet Volume 10.1 fL (7.0-11.0); Mono # (Auto) 1.5 th/mm3 (0.0-0.9); Neut % (Auto) 74.9 % (16.0-70.0); Platelet Count 68 th/mm3 (150-450); Red Blood Count 3.06 mil/mm3 (4.00-5.30); Red Cell Distribution Width 13.9 % (11.6-17.2); White Blood Count 13.3 th/mm3 (4.0-11.0)
[2018-06-05 06:25] LABS: Calcium 7.7 mg/dL (8.5-10.1); Carbon Dioxide 26.2 meq/L (21.0-32.0)
[2018-06-05 06:32] LABS: Potassium 2.6 meq/L (3.5-5.1)
[2018-06-05] MEDS: Famotidine 20 MG Tablet PO SCH ×2 (08:11→21:56)
[2018-06-05] MEDS: Lactobacillus Acidophilus/L. Spores Tablet PO SCH ×3 (08:11→18:55)
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
[2018-06-05 08:48] LABS: Lymphocytes 5 % (9-44); Metamyelocytes 1 % (0-1); Monocytes 7 % (0-8); Promyelocyte 1 % (0-0)
[2018-06-05 08:49] LABS: Acanthocytes Occ; Platelet Morphology Normal (Normal)
--- NOTE | 2018-06-05 11:34 | P.PNURO ---
Subjective Patient symptoms today: Pt seen and examined. Feeling better. Objective Vital Signs: Vital Signs 06/04/18 12:00 06/04/18 14:00 06/04/18 16:00 Temperature 98.7 F 98.2 F Pulse Rate 100 H 104 H 88 Respiratory Rate 25 H 26 H Blood Pressure 119/74 122/74 Pulse Oximetry 97 95 06/04/18 18:00 06/04/18 19:56 06/04/18 20:00 Temperature 98.0 F Pulse Rate 93 H 93 H Respiratory Rate 15 Blood Pressure 120/71 Pulse Oximetry 98 06/04/18 21:42 06/04/18 22:00 06/05/18 00:00 Temperature 97.9 F Pulse Rate 89 80 92 H Respiratory Rate 18 20 Blood Pressure 119/73 Pulse Oximetry 96 06/05/18 02:00 06/05/18 04:00 06/05/18 06:00 Temperature 98.1 F Pulse Rate 88 92 H 92 H Respiratory Rate 23 Blood Pressure 126/64 Pulse Oximetry 98 Intake & Output 06/04/18 06/05/18 06/05/18 18:59 06:59 18:59 Intake Total 780 / 780 780 / 780 Output Total 2575 / 2575 3375 / 3375 Balance -1795 / -1795 -2595 / -2595 Weight 67.1 kg Intake: IV 300 / 300 100 / 100 Zosyn 3.375 GM Premix 50 ML @ 50 / 50 100 / 100 100 mls/hr IV.SIG Q8H AIRAM Rx#: [id number] Vancomycin Inj 1,250 MG In NS 250 / 250 Inj 250 ML @ 250 mls/hr IV.SIG Q24H AIRAM Rx#:[id number] Oral 480 / 480 680 / 680 Output: Stool 0 / 0 0 / 0 Urine Amount (Catheter) 1500 / 1500 2300 / 2300 Indwelling Urethral Catheter 1500 / 1500 2300 / 2300 Wound Drainage 1075 / 1075 1075 / 1075 Right Posterior Back 1075 / 1075 1075 / 1075 Other: Date of Last Bowel Movement 06/02/18 06/02/18 Result Diagrams: 06/05/18 05:02 06/05/18 05:02 Medications and IVs: Active Medications Generic Name Dose Route Start Last Admin Trade Name Freq PRN Reason Stop Dose Admin Acetaminophen 650 mg 06/01/18 14:53 06/04/18 20:07 Tylenol PO 650 mg Q4H PRN Administration pain or temp >101 Albuterol 1 ampul 06/04/18 08:06 06/05/18 03:38 Duoneb Neb (Prn) NEB 1 ampul Q4HR NEB PRN Administration sob/ wheezing Famotidine 20 mg 06/05/18 21:00 Pepcid PO BID AIRAM Gabapentin 300 mg 06/01/18 18:00 Neurontin PO TID AIRAM Vancomycin HCl 1,250 mg/ 262.5 mls @ 250 mls/hr 06/04/18 15:00 06/04/18 18:40 Sodium Chloride IV.SIG 0 mls/hr Q24H AIRAM Infusion Piperacillin/Tazobactam/Dextrose 50 mls @ 100 mls/hr 06/02/18 00:00 06/05/18 08:10 Zosyn 3.375 Gm Premix IV.SIG 100 mls/hr Q8H AIRAM Administration Pharmacy Profile Note 0 mls @ 0 mls/hr 06/01/18 19:00 Vancomycin Consult Pharmacy [facility] As Directed Phenylephrine HCl 40 mg/ 500 mls @ 30 mls/hr 06/01/18 20:59 06/02/18 05:59 Dextrose IV.CONT 0 mcg/min TITRATE PRN 0 mls/hr Per Protocol Titration Protocol 40 MCG/MIN Lactated Ringer's 1,000 mls @ 30 mls/hr 06/01/18 23:00 06/04/18 17:28 Lr 1000 Ml Inj IV.SIG Not Given .Q24H AIRAM Lactobacillus Acidophilus 1 tab 06/01/18 18:00 06/05/18 08:11 Lactinex PO 1 tab TID AIRAM Administration Miscellaneous Information 0 each 06/07/18 14:45 [facility] [place] Lab Info OTHER 06/07/18 14:46 ONCE ONE Ondansetron HCl 4 mg 06/01/18 14:53 Zofran Inj IV.PUSH Q8H PRN nausea Potassium Chloride 40 meq 06/05/18 12:00 K-Dur PO 06/05/18 12:01 ONCE ONE Potassium Chloride 40 meq 06/05/18 16:00 K-Dur PO 06/05/18 16:01 ONCE ONE Terbutaline Sulfate 1 mg 06/01/18 20:59 Brethine Inj SQ UNSCH PRN For Extravasation Objective Remarks: Abd:soft,nt,nd Urine clearing from right PCNT. 06/04 Abd:soft,nt,nd Urine clearing from right PCNT. 06/05 Abd:soft,nt,nd Urine clearing from right PCNT. Assessment and Plan - Plan 57 y.o female with probable urosepsis and negative urine and blood cultures Continue IV abx Maintain foely and PCNT For internalization with right JJ stent per IR this week. 06/04 57 y.o female with probable urosepsis and negative urine and blood cultures Continue IV abx Maintain foely and PCNT For internalization with right JJ stent per IR this week. 06/05 57 y.o female with probable urosepsis and negative urine and blood cultures Continue IV abx Maintain foely and PCNT For internalization with right JJ stent per IR in AM.
[2018-06-05] MEDS: Vancomycin Inj 1,250 MG in Sodium Chlor 0.9% Inj 250 ML IV.SIG SCH (15:57)
[2018-06-06] MEDS: Piperacil/Tazo 3.375 GM Premix 50 ML IV.SIG SCH ×4 (02:21→23:38)
[2018-06-06 07:47] LABS: Baso # (Auto) 0.1 th/mm3 (0.0-0.2); Baso % (Auto) 0.4 % (0.0-2.0); Eos % (Auto) 0.3 % (0.0-4.0); Hematocrit 29.4 % (35.0-46.0); Hemoglobin 9.7 gm/dL (11.6-15.3); Lymph % (Auto) 11.4 % (9.0-44.0); Mean Corpuscular HGB Conc 33.1 % (32.0-36.0); Mean Corpuscular Hemoglobin 30.1 pg (27.0-34.0); Mean Corpuscular Volume 90.8 fL (80.0-100.0); Mean Platelet Volume 9.9 fL (7.0-11.0); Mono # (Auto) 1.5 th/mm3 (0.0-0.9); Mono % (Auto) 8.3 % (0.0-8.0); Neut # (Auto) 13.9 th/mm3 (1.8-7.7); Neut % (Auto) 79.6 % (16.0-70.0); Platelet Count 130 th/mm3 (150-450); Red Blood Count 3.24 mil/mm3 (4.00-5.30); Red Cell Distribution Width 13.9 % (11.6-17.2); White Blood Count 17.5 th/mm3 (4.0-11.0)
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
[2018-06-06 08:16] LABS: Calcium 7.8 mg/dL (8.5-10.1)
[2018-06-06] MEDS: Famotidine 20 MG Tablet PO SCH ×2 (08:20→21:45)
[2018-06-06] MEDS: Lactobacillus Acidophilus/L. Spores Tablet PO SCH ×3 (08:20→17:26)
[2018-06-06 08:40] LABS: Potassium 2.7 meq/L (3.5-5.1)
[2018-06-06 08:43] LABS: Lymphocytes 8 % (9-44); Monocytes 10 % (0-8); Myelocytes 2 % (0-0)
[2018-06-06 08:44] LABS: Platelet Morphology Normal (Normal); Toxic Granulation 1+
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
[2018-06-06] MEDS: Potassium Chlor 20 mEq Premix 20 MEQ/100 ML PIGGYBACK IV.SIG SCH ×2 (09:27→12:10)
--- NOTE | 2018-06-06 14:06 | ECG ---
Date Performed: 06/06/2018 Time Performed: 09:18:46 PTAGE: 57 years EKG: SINUS TACHYCARDIA WITH SHORT [place] INTERVAL POSSIBLE RIGHT VENTRICULAR CONDUCTION DELAY NONSPE CIFIC ST & T-WAVE ABNORMALITY ABNORMAL RHYTHM ECG Compared to prior electrocardiogram, rate has incre ased and nonspecific T-wave changes are slightly more marked. PREVIOUS TRACING : 06/01/2018 12.12 DOCTOR: Alphonse Wynne Interpretating Date/Time 06/06/2018 14:04:54
[2018-06-06] MEDS: Acetaminophen 325 MG Tablet PO PRN ×2 (14:35→21:49)
--- NOTE | 2018-06-06 16:30 | P.PNURO ---
Subjective Patient symptoms today: Pt seen and examined. Some SOB this AM but states she is now feeling better. She did not undergo JJ stent internalization due to SOB. Objective Vital Signs: Vital Signs 06/05/18 17:00 06/05/18 20:00 06/05/18 20:57 Temperature 97.4 F L Pulse Rate 106 H 112 H Respiratory Rate 22 24 Blood Pressure 140/85 150/78 H Pulse Oximetry 94 L 93 L 06/06/18 00:00 06/06/18 02:00 06/06/18 02:19 Temperature 97 F L Pulse Rate 109 H 109 H 109 H Respiratory Rate 22 20 Blood Pressure 129/75 Pulse Oximetry 93 L 06/06/18 04:00 06/06/18 06:00 06/06/18 07:54 Temperature 97.7 F Pulse Rate 105 H 88 111 H Respiratory Rate 22 16 Blood Pressure 152/71 H Pulse Oximetry 93 L 92 L 06/06/18 08:00 06/06/18 12:00 06/06/18 14:00 Temperature 97.8 F 98.5 F Pulse Rate 118 H 116 H 110 H Respiratory Rate 24 26 H Blood Pressure 164/95 H 147/90 H Pulse Oximetry 92 L 93 L 06/06/18 16:00 Temperature 97.9 F Pulse Rate 113 H Respiratory Rate 24 Blood Pressure 136/83 Pulse Oximetry 93 L Intake & Output 06/05/18 06/06/18 06/06/18 18:59 06:59 18:59 Intake Total 302.5 / 302.5 770 / 770 100 / 100 Output Total 1677 / 1677 250 / 250 402 / 402 Balance -1374.5 / -1374.5 520 / 520 -302 / -302 Weight 67.1 kg Intake: IV 62.5 / 62.5 350 / 350 100 / 100 Zosyn 3.375 GM Premix 50 ML @ 50 / 50 100 / 100 100 mls/hr IV.SIG Q8H AIRAM Rx#: [id number] KCl 20 mEq Premix Inj 20 meq In 100 / 100 100 ml @ 50 mls/hr IV.SIG Q2H AIRAM Rx#:[id number] Vancomycin Inj 1,250 MG In NS 12.5 / 12.5 250 / 250 Inj 250 ML @ 250 mls/hr IV.SIG Q24H AIRAM Rx#:[id number] Oral 240 / 240 420 / 420 Output: Urine 250 / 250 Stool 2 / 2 2 / 2 Urine Amount (Catheter) 350 / 350 Indwelling Urethral Catheter 350 / 350 Wound Drainage 1325 / 1325 400 / 400 Right Posterior Back 1325 / 1325 400 / 400 Other: Date of Last Bowel Movement 06/05/18 06/05/18 # Bowel Movements 1 1 Result Diagrams: 06/06/18 07:10 06/06/18 15:00 Imaging: Impressions Chest X-Ray 06/06/18 00:00 CONCLUSION: Medications and IVs: Active Medications Generic Name Dose Route Start Last Admin Trade Name Freq PRN Reason Stop Dose Admin Acetaminophen 650 mg 06/01/18 14:53 06/06/18 14:35 Tylenol PO 650 mg Q4H PRN Administration pain or temp >101 Albuterol 1 ampul 06/04/18 08:06 06/06/18 07:51 Duoneb Neb (Prn) NEB 1 ampul Q4HR NEB PRN Administration sob/ wheezing Famotidine 20 mg 06/05/18 21:00 06/06/18 08:20 Pepcid PO 20 mg BID AIRAM Administration Gabapentin 300 mg 06/01/18 18:00 Neurontin PO TID AIRAM Vancomycin HCl 1,250 mg/ 262.5 mls @ 250 mls/hr 06/04/18 15:00 06/05/18 19:30 Sodium Chloride IV.SIG 250 mls/hr Q24H AIRAM Infusion Piperacillin/Tazobactam/Dextrose 50 mls @ 100 mls/hr 06/02/18 00:00 06/06/18 08:20 Zosyn 3.375 Gm Premix IV.SIG 100 mls/hr Q8H AIRAM Administration Pharmacy Profile Note 0 mls @ 0 mls/hr 06/01/18 19:00 Vancomycin Consult Pharmacy OTHER [facility] As Directed Lactated Ringer's 1,000 mls @ 30 mls/hr 06/01/18 23:00 06/04/18 17:28 Lr 1000 Ml Inj IV.SIG Not Given .Q24H AIRAM Lactobacillus Acidophilus 1 tab 06/01/18 18:00 06/06/18 12:38 Lactinex PO 1 tab TID ARIAM Administration Miscellaneous Information 0 each 06/07/18 14:45 Mis Pharmacy Ordered Lab Info OTHER 06/07/18 14:46 ONCE ONE Ondansetron HCl 4 mg 06/01/18 14:53 Zofran Inj IV.PUSH Q8H PRN nausea Terbutaline Sulfate 1 mg 06/01/18 20:59 Brethine Inj SQ UNSCH PRN For Extravasation Objective Remarks: Abd:soft,nt,nd Urine clearing from right PCNT. 06/04 Abd:soft,nt,nd Urine clearing from right PCNT. 06/05 Abd:soft,nt,nd Urine clearing from right PCNT. 06/06 Abd:soft,nt,nd Urine clearing from right PCNT. Biggs: urine clear Assessment and Plan - Plan 57 y.o female with probable urosepsis and negative urine and blood cultures Continue IV abx Maintain foely and PCNT For internalization with right JJ stent per IR this week. 06/04 57 y.o female with probable urosepsis and negative urine and blood cultures Continue IV abx Maintain foely and PCNT For internalization with right JJ stent per IR this week. 06/05 57 y.o female with probable urosepsis and negative urine and blood cultures Continue IV abx Maintain foely and PCNT For internalization with right JJ stent per IR in AM. 06/06 57 y.o female with probable urosepsis and negative urine and blood cultures Continue IV abx Maintain foely and PCNT For internalization with right JJ stent per IR in AM if stable
--- NOTE | 2018-06-06 17:21 | ECHRPT ---
Indication: HEART FAIURE CONCLUSIONS Normal left ventricular size. Wall thickness is normal. The left ventricular systolic function is severely reduced with an estimated ejection fraction less than 20%. The left atrial size is mildly dilated. severe mitral valve regurgitation. Aortic valve sclerosis is present. There is mild tricuspid valve regurgitation. The estimated pulmonary arterial pressure is 37.2 mmHg. BP: / HR: Rhythm: Sinus MEASUREMENTS (Male / Female) Normal Values Technical Quality:Fair 2D ECHO LV Diastolic Diameter PLAX 4.8 cm 4.2 - 5.9 / 3.9 - 5.3 cm LV Systolic Diameter PLAX 4.4 cm IVS Diastolic Thickness 0.8 cm 0.6 - 1.0 / 0.6 - 0.9 cm LVPW Diastolic Thickness 0.8 cm 0.6 - 1.0 / 0.6 - 0.9 cm LV Relative Wall Thickness 0.3 RV Internal Dim ED PLAX 2.6 cm LVOT Diameter 2.0 cm Aortic Root Diameter 3.3 cm LA Systolic Diameter LX 4.4 cm 3.0 - 4.0 / 2.7 - 3.8 cm M-MODE AV Cusp Separation MM 2.0 cm DOPPLER AV Peak Velocity 89.6 cm/s AV Peak Gradient 3.2 mmHg AV Mean Gradient 1.0 mmHg AV Velocity Time Integral 12.9 cm LVOT Peak Velocity 56.4 cm/s LVOT Peak Gradient 1.3 mmHg LVOT Velocity Time Integral 9.1 cm AV Area Cont Eq vti 2.2 cm AV Area Cont Eq pk 2.0 cm Mitral E Point Velocity 75.5 cm/s Mitral A Point Velocity 67.6 cm/s Mitral E to A Ratio 1.1 LV E' Lateral Velocity 8.8 cm/s Mitral E to LV E' Lateral Ratio 8.6 LV E' Septal Velocity 6.7 cm/s Mitral E to LV E' Septal Ratio 11.2 TR Peak Velocity 261.0 cm/s TR Peak Gradient 27.2 mmHg Right Atrial Pressure 10.0 mmHg Pulmonary Artery Systolic Pressu 37.2 mmHg Right Ventricular Systolic Press 37.2 mmHg PV Peak Velocity 51.9 cm/s PV Peak Gradient 1.1 mmHg FINDINGS LEFT VENTRICLE Normal left ventricular size. Wall thickness is normal. The left ventricular systolic function is severely reduced with an estimated ejection fraction less than 20%. RIGHT VENTRICLE Normal right ventricular size and systolic function. LEFT ATRIUM The left atrial size is mildly dilated. RIGHT ATRIUM The right atrial size is normal. ATRIAL SEPTUM No atrial level shunt is demonstrated by color flow Doppler interrogation. MITRAL VALVE Moderate mitral valve regurgitation. AORTIC VALVE Aortic valve sclerosis is present. TRICUSPID VALVE There is mild tricuspid valve regurgitation. The estimated pulmonary arterial pressure is 37.2 mmHg. PULMONARY VALVE No pulmonary valve regurgitation or stenosis. PERICARDIUM No pericardial effusion. Sam Raygoza MD, FACC, [facility] [place] (Electronically Signed) Final Date:06 June 2018 17:20
[2018-06-06] MEDS: Vancomycin Inj 1,250 MG in Sodium Chlor 0.9% Inj 250 ML IV.SIG SCH (17:26)
[2018-06-07 06:21] LABS: Baso # (Auto) 0.1 th/mm3 (0.0-0.2); Baso % (Auto) 0.5 % (0.0-2.0); Eos # (Auto) 0.2 th/mm3 (0.0-0.4); Eos % (Auto) 1.4 % (0.0-4.0); Hemoglobin 9.5 gm/dL (11.6-15.3); Lymph # (Auto) 2.1 th/mm3 (1.0-4.8); Lymph % (Auto) 12.7 % (9.0-44.0); Mean Corpuscular HGB Conc 33.9 % (32.0-36.0); Mean Corpuscular Hemoglobin 30.9 pg (27.0-34.0); Mean Corpuscular Volume 91.1 fL (80.0-100.0); Mean Platelet Volume 9.9 fL (7.0-11.0); Mono % (Auto) 6.1 % (0.0-8.0); Neut # (Auto) 13.1 th/mm3 (1.8-7.7); Neut % (Auto) 79.3 % (16.0-70.0); Platelet Count 162 th/mm3 (150-450); Red Blood Count 3.08 mil/mm3 (4.00-5.30); Red Cell Distribution Width 14.2 % (11.6-17.2); White Blood Count 16.5 th/mm3 (4.0-11.0)
[2018-06-07 06:33] LABS: Calcium 7.6 mg/dL (8.5-10.1); Carbon Dioxide 23.8 meq/L (21.0-32.0)
[2018-06-07 06:54] LABS: Potassium 2.9 meq/L (3.5-5.1)
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
[2018-06-07] MEDS: Lactobacillus Acidophilus/L. Spores Tablet PO SCH ×3 (09:48→19:52)
[2018-06-07] MEDS: Famotidine 20 MG Tablet PO SCH ×2 (09:48→20:12)
[2018-06-07] MEDS: Piperacil/Tazo 3.375 GM Premix 50 ML IV.SIG SCH ×2 (09:50→19:52)
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
[2018-06-07] MEDS ORDERED: Pharmacy Ordered Lab Info OTHER ONE (14:45)
[2018-06-07] MEDS: Vancomycin Inj 1,250 MG in Sodium Chlor 0.9% Inj 250 ML IV.SIG SCH (15:49)
[2018-06-07] MEDS: Acetaminophen 325 MG Tablet PO PRN ×2 (15:50→20:12)
--- NOTE | 2018-06-07 21:29 | CT ---
EXAM DATE: 06/07/2018 9:17 PM EDT AGE/SEX: 57 years / Female INDICATIONS: Evaluate for mass. CLINICAL DATA: This is the patient's initial encounter. Patient reports that signs and symptoms have been present for 1 day and indicates a pain score of 0/10. MEDICAL/SURGICAL HISTORY: Sepsis. Renal failure, acute. Renal calculi. . Orthopedic surgery. RADIATION DOSE: 7.69 CTDI (mGy) COMPARISON: No prior exams available for comparison. TECHNIQUE: Multiple contiguous axial images were obtained through the chest without contrast. Image s were obtained in suspended respiration using multiple row detector helical technique. Using automa mine exposure control and adjustment of the mA and/or kV according to patient size, radiation dose was kept as low as reasonably achievable to obtain optimal diagnostic quality images. DICOM format imag e data is available electronically for review and comparison. FINDINGS: Lungs: There are moderate bilateral pleural effusions being greater on the right. There is increased density in the lower lobes bilaterally likely related to atelectasis given the effusions versus cons olidation. There is an vague interstitial consolidation seen in the upper lungs bilaterally being mor e prominent on the right, and the right middle and lower lobes best seen on the sagittal images. Ther e are some subpleural density seen in the posterior right upper lung. Mediastinum: Scattered normal size lymph nodes are seen. There are a few coronary artery calcificati ons present. There is a mild pericardial effusion seen anteriorly. Pleurae: There are moderate bilateral pleural effusions being greater on the right. Axillae: Unremarkable. Bony Structures: There is some lucency seen at the superior lateral left humeral head. The humeral h ead is incompletely included on this CT of the chest. This could be secondary to hypertrophic change or fracture. There are old fractures seen at the left third through eighth ribs. There are old right second through seventh rib fractures. Miscellaneous: The examination was extended to include the upper abdomen, and both adrenal glands ar e normal in size and configuration. CONCLUSION: 1. Moderate bilateral pleural effusions. 2. Increased density in the posterior lower lobes bilaterally likely related to atelectasis given th e effusions versus consolidation. 3. Vague interstitial consolidation seen throughout the right lung and in the left upper lobe. This is nonspecific. 4. Suspected old fracture deformities at the wrists bilaterally and likely at the proximal left tien zina. Electronically signed by: Murray Conde MD 06/07/2018 9:27 PM EDT
[2018-06-08] MEDS: Piperacil/Tazo 3.375 GM Premix 50 ML IV.SIG SCH ×4 (00:03→21:31)
[2018-06-08 08:17] LABS: Calcium 7.7 mg/dL (8.5-10.1); Potassium 3.2 meq/L (3.5-5.1)
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
[2018-06-08] MEDS: Lactobacillus Acidophilus/L. Spores Tablet PO SCH ×3 (08:54→17:03)
[2018-06-08] MEDS: Famotidine 20 MG Tablet PO SCH ×2 (08:54→21:30)
[2018-06-08] MEDS: Lisinopril 5 MG Tablet PO SCH (08:54)
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
[2018-06-08] MEDS ORDERED: Sodium Chloride 0.65% Nasal Spray 45 ML Bottle EACH NARE PRN (13:52)
[2018-06-08] MEDS: Acetaminophen 325 MG Tablet PO PRN (16:35)
[2018-06-09] MEDS: Piperacil/Tazo 3.375 GM Premix 50 ML IV.SIG SCH ×2 (05:56→08:21)
[2018-06-09] MEDS: Vancomycin Inj 1,250 MG in Sodium Chlor 0.9% Inj 250 ML IV.SIG SCH (08:17)
[2018-06-09] MEDS: Famotidine 20 MG Tablet PO SCH ×2 (08:20→21:30)
[2018-06-09] MEDS: Lactobacillus Acidophilus/L. Spores Tablet PO SCH ×3 (08:20→18:16)
[2018-06-09] MEDS: Lisinopril 5 MG Tablet PO SCH (08:20)
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
[2018-06-09 09:34] LABS: Baso # (Auto) 0.1 th/mm3 (0.0-0.2); Baso % (Auto) 0.4 % (0.0-2.0); Eos # (Auto) 0.3 th/mm3 (0.0-0.4); Hematocrit 32.6 % (35.0-46.0); Hemoglobin 10.8 gm/dL (11.6-15.3); Lymph % (Auto) 14.5 % (9.0-44.0); Mean Corpuscular HGB Conc 33.3 % (32.0-36.0); Mean Corpuscular Hemoglobin 29.9 pg (27.0-34.0); Mean Corpuscular Volume 89.8 fL (80.0-100.0); Mean Platelet Volume 9.7 fL (7.0-11.0); Mono # (Auto) 0.8 th/mm3 (0.0-0.9); Mono % (Auto) 5.9 % (0.0-8.0); Neut # (Auto) 10.7 th/mm3 (1.8-7.7); Neut % (Auto) 77.2 % (16.0-70.0); Platelet Count 284 th/mm3 (150-450); Red Blood Count 3.63 mil/mm3 (4.00-5.30); Red Cell Distribution Width 14.1 % (11.6-17.2); White Blood Count 13.9 th/mm3 (4.0-11.0)
[2018-06-09 09:58] LABS: Calcium 8.4 mg/dL (8.5-10.1); Potassium 3.1 meq/L (3.5-5.1)
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
[2018-06-09] MEDS ORDERED: Regadenoson Inj 0.4 MG/5 ML Syringe IV.PUSH ONE (14:01)
--- NOTE | 2018-06-09 15:55 | NM ---
EXAM DATE: 06/09/2018 3:44 PM EDT AGE/SEX: 57 years / Female INDICATIONS:Congestive heart failure. . Cardiomyopathy with dyspnea. CLINICAL DATA: This is the patient's initial encounter. Patient reports that signs and symptoms have been present for 1 day and indicates a pain score of 0/10. MEDICAL/SURGICAL HISTORY: Hypertension. . Nephrostomy tube placement. COMPARISON: No prior exams available for comparison. DOSE: 8.2 mCi Tc 99m Myoview at rest 26.2 mCi [id number] at stress 0.4 mg Lexiscan STRESS SYMPTOMS: Lightheadedness, dyspnea and chest tightness. EJECTION FRACTION: 38 % TECHNIQUE: The patient underwent pharmacologic stress with infusion of prescribed dose. Continuous ECG tracing was monitored during stress. Gated SPECT imaging was performed after stress and conventi onal SPECT imaging was performed at rest. The examination was performed on a SPECT/CT scanner, both attenuation and non-corrected datasets were reviewed. FINDINGS: Distribution: The maximum perfused segment at stress is in the lateral wall. Perfusion Study: The pattern of perfusion at stress demonstrates reduction in perfusion to the ante rior wall which is fixed for the most part. There is also reduction in perfusion to the inferior wall which demonstrates redistribution in addition to slight redistribution in the septal wall. Gated Study: There is global hypokinesis. The ejection fraction is calculated at 38%. RISK CATEGORY: Intermediate (1-3 % Annual Mortality Rate) CONCLUSION: 1. There is ischemia in the low inferior wall and parts of the septal wall. 2. Reduced ejection fraction based on this technique. Electronically signed by: Arnulfo López MD 06/09/2018 3:54 PM EDT
[2018-06-09] MEDS: Carvedilol 6.25 MG Tablet PO SCH ×2 (16:16→21:30)
[2018-06-09] MEDS: Acetaminophen 325 MG Tablet PO PRN ×2 (16:18→22:18)
[2018-06-09] MEDS: levoFLOXacin Liq 25 MG/ML 100 ML Bottle PO SCH (16:24)
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
[2018-06-10] MEDS: Lisinopril 5 MG Tablet PO SCH (08:54)
[2018-06-10] MEDS: Famotidine 20 MG Tablet PO SCH ×2 (08:55→20:21)
[2018-06-10] MEDS: Carvedilol 6.25 MG Tablet PO SCH ×2 (08:55→20:21)
[2018-06-10] MEDS: Lactobacillus Acidophilus/L. Spores Tablet PO SCH ×3 (08:55→17:28)
[2018-06-10] MEDS: levoFLOXacin Liq 25 MG/ML 100 ML Bottle PO SCH (08:56)
[2018-06-10 10:19] LABS: Calcium 8.8 mg/dL (8.5-10.1); Carbon Dioxide 22.5 meq/L (21.0-32.0); Potassium 3.7 meq/L (3.5-5.1)
[2018-06-10] MEDS ORDERED: Heparin/NS PF Inj 1,000 ML ONE (11:19)
[2018-06-10] MEDS ORDERED: fentaNYL Citrate Inj 100 MCG/2 ML Ampul ONE (11:19)
--- NOTE | 2018-06-10 11:47 | CATHPROC ---
[email or web address] HIS Report Study Information Study Number Admission Scheduled Start Study Start [id number] Jun 01 2018 2:14PM 06/10/2018 Jun 10 2018 11:09AM [place] Service Cath Endovascular Study Admit Source Facility Department Emergency department [facility] - Marketing Sales Representative Physician and Clinical Staff Initial Pipe Scott Card Scraper Brandee Mata,CLAUDETTE Recorder Krystyna Fernandez,RT(R) (BS) Recorder Rhett HarleyRT(R) Abdias Frederick RCIS(BS) Procedures Performed Procedure Location (Site) Vessel Name Coronary Angiograms LCA Left Coronary Coronary Angiograms RCA Right Coronary Equipment Time Film Flat Inspector Description Size Mfg Part Number Used/Scraped TRANSDUCER, TRUWAVE [id number] 11:11 ISIDRO VILLALOBOS * Used W/STOCKCOCK *[id number] *[id number] *[id number] 11:11 [employer] BLANKET,WARM AIR CCL * Used *[id number] 11:11 [employer] PACK, CCL CUSTOM * Used *[id number] 11:11 [employer] PACER PEN, SKIN DUAL W/ RULER * Used *[id number] 11:11 [email or web address] WIRE, 3MMJ .035 180CM 180CM Used *[id number] 11:11 NAMIC MANIFOLD, 4 PORT * Used *[id number] 11:11 [employer]COMED OMNIPAQUE, 350 MG, 150ML 150ML [id number] Used [id number] 11:22 TERUMO MEDICAL SHEATH, FR4 TERUMO (10CM) FR 4 Used *[id number] History: Allergies Allergy Reaction No Known Allergies History: Risk Factors Family History of Hypertension Dyslipidemia Previous PA Previous Heart Failure Premature CAD No No No No No Prior Valve Prior PCI Prior CABG Surgery No No No Cerebrovascular Peripheral Artery Chronic Lung On Dialysis Diabetes Disease Disease Disease No No No No No History: Stress Tests Stress or Imaging Studies Performed Yes Standard Exercise Stress Test No Stress Echo No Stress Test SPECT Stress Test SPECT Result Stress Test SPECT Ischemia Risk/Extent Yes Positive Intermediate Stress Test CMR No Cardiac CTA Coronary Calcium Score No No History: Other Current Smoker Method Packs a Day Years Used Pack Years Yes Cigarettes 1 20 20 Labs Hgb (g/dl) Hct (%) WBC (l/cumm) Platelets (thousands) 11.60-17.00 35.00-51.00 4.00-11.00 150.00-450.00 10.8 32.6 13.9 284 Glucose (mg/dl) BUN (mg/dl) Creatinine (mg/dl) BUN:Creatinine (1:x) 74.00-106.00 7.00-18.00 0.50-1.30 10.00-20.00 90 15 1.0 15 Na (meq/l) K (meq/l) 136.00-145.00 3.50-5.10 139 3.7 CPK-MB (ng/ML) 0.50-3.60 Not Drawn Medication Medication Total Dose (Bolus/Oral) Medication Total Dosage/Unit 1% XYLOCAINE 10 mL FENTANYL 25 mcg VERSED 1 mg Medications (Bolus/Oral) Medication Time Given Dosage/Unit Administered By Reason VERSED 06/10/2018 11:26:52 AM 1 mg Brandee Mata 1 mg VERSED given in lab by Brandee Mata RN in Right Wrist via Peripheral IV. Ordered by Evon Mcintosh. FENTANYL 06/10/2018 11:27:19 AM 25 mcg Brandee Mata 25 mcg FENTANYL given in lab by Brandee Mata RN in Right Wrist via Peripheral IV. Ordered by Piep Lopez. 1% XYLOCAINE 06/10/2018 11:30:07 AM 10 mL Pipe Mcintosh 10 mL 1% XYLOCAINE given in lab by Pipe Mcintosh in Right Groin via Subcutaneous. Ordered by Pipe Mcintosh. Medication (Drip) Medication Time Given Dosage/Unit Concentration/Unit Diluent (ml) Solution IV Solutions 06/10/2018 11:09:36 AM 0 mL (IV) 500 NaCl .9 Patient arrived on IV Solutions given by Pipe Mcintosh in Right Wrist via Peripheral IV. Pump/Drip F low = 20 ml/hr using NaCl .9. Ordered by Pipe Mcintosh. Initial Case Assessment Chronological Log Time Study Chronological Log 11:05:17 Patient arrived via Bed. 11:05:18 Patient Name, D.O.B, / Armband Verified By R.N. 11:09:21 Consent signed by the physician and the patient and verified by the Marketing Sales Representative staff. 11:09:23 Pre-op and post- op instructions given; patient acknowledges understanding of instruction s. 11:09:25 Presedation assessment performed by Marketing Sales Representative RN. 11::28 Patient has been NPO for More than 6Hrs. 11::29 Skin Breakdown- 11::31 Patient Warmer Placed on the Table. 11::32 [place] Prominences Protected 11::34 A # 20 IV was noted in the Wrist (right). Grade = 0 Patient arrived on IV Solutions given by Pipe Mcintosh in Right Wrist via Peripheral IV. Pum p/Drip Flow = 20 ml/hr 11::36 using NaCl .9. Ordered by Pipe Mcintosh. 11::36 History and physical on the chart or being dictated. 11::39 Assessment: Initial Case Vitals capture started with the following parameters, Patient=Adult, Interval=5 min, Initial Iiiqgwkl=057 mmHg, 11::24 Deflation Rate=5 mmHg, Cuff placed on Left Arm 11:13:58 RR=632 bpm, NIRR=355/73 mmhg, SpO2=97.0 %, Resp=14 B/min, Quinn=2 11:15:15 Reference ECG taken 11:18:57 HR=91 bpm, EUYD=839/72 mmhg, SpO2=98.0 %, Resp=16 B/min, Quinn=2 11:23:56 HR=98 bpm, DHZU=010/72 mmhg, SpO2=95.0 %, Resp=15 B/min, Quinn=2 11::28 Pressure channel 1 zeroed. 11:25:42 MD arrived. 11:26:52 1 mg VERSED given in lab by Brandee Mata RN in Right Wrist via Peripheral IV. Ordered by Pipe Mcintosh. 11:27:19 25 mcg FENTANYL given in lab by Brandee Mata, CLAUDETTE in Right Wrist via Peripheral IV. Orde red by Pipe Mcintosh. 11:28:55 GR=691 bpm, QMFF=534/70 mmhg, SpO2=93.0 %, Resp=8 B/min, Quinn=2 Time Out. Correct patient, correct procedure, correct physician, labs, allergies, and equipmen t verified with agricultural labor camp manager 11:28:59 team present. Fire risk assesment completed (see hard stop sheet for coding). Time Out Con curred by MD and individual staff in procedure. 11:29:04 Presedation re-assessment performed by Marketing Sales Representative RN. 11:29:06 Case Start 11:29:07 Verbal Stimulation=2 Physical Stimulation=2 Airway=2 Respiration=2 TOTAL=8. (0=absent, 1=l imited, 2=present) 11:30:07 10 mL 1% XYLOCAINE given in lab by Pipe Mcintosh in Right Groin via Subcutaneous. Ordered by Pipe Mcintosh. 11:30:15 Access site was Right Femoral Artery. 11:30:22 A SHEATH, FR4 TERUMO (10CM) FR 4 was advanced into the Fem Art (right) using the Percutane ous technique. A JL 4.0 INFINITI CATHETER FR 4 was advanced over a wire. OMNIPAQUE, 350 MG, 150ML 150ML was u sed for 11:30:48 injections. 11:31:39 The LCA was injected and visualized at various angles. OMNIPAQUE, 350 MG, 150ML 150ML use d. Recorded Pressure: Ao, AY=947, Condition=Condition 1 11:31:45 (Aorta) Ao 103/59/79 11:32:29 Catheter was removed A JR 4.0 INFINITI CATHETER FR 4 was advanced over a wire. OMNIPAQUE, 350 MG, 150ML 150ML was u sed for 11:32:31 injections. 11:33:45 The RCA was injected and visualized at various angles. OMNIPAQUE, 350 MG, 150ML 150ML use d. 11:33:56 QN=963 bpm, YOND=354/66 mmhg, SpO2=91.0 %, Resp=19 B/min, Quinn=2 11:36:09 Catheter was removed 11:38:55 UX=175 bpm, UFJG=725/75 mmhg, SpO2=92.0 %, Resp=21 B/min, Quinn=2 11:41:53 Vitals capture stopped. End Study - Contrast Media Used In Study Contrast Total Opened (mL) Total Used (mL) Total Wasted (mL) Omnipaque 15 15 0 End Study - Maximum Contrast Load Max Contrast Load (mL) 272.5 End Study - Radiation Exposure Fluoro Time (minutes) 1.2 End Study - Patient Disposition Complications Transferred To Telemetry Bed
--- NOTE | 2018-06-10 12:00 | MA ---
cc: Pipe Mcintosh MD DATE: 06/10/2018 INDICATIONS: Abnormal stress test, cardiomyopathy. PROCEDURES PERFORMED: 1. Fluoroscopy with interpretation. 2. Coronary angiography. 3. Left heart catheterization. METHOD: The risks, benefits, and alternatives discussed with the patient. The patient understood and consented. DESCRIPTION OF PROCEDURE: The patient was brought to the cardiac catheterization lab, placed on the catheterization table. The right groin was prepped and draped in sterile fashion. The right groin was anesthetized with 2% lidocaine. The right common femoral artery was cannulated. A 4-Tamazight 11 cm sheath was placed without difficulty. Intraventricular hemodynamics: 110/6 mmHg. CORONARY ANGIOGRAPHY: 1. Left main coronary artery is angiographically normal. 2. Left anterior descending coronary artery is angiographically normal. 3. Left circumflex gives rise to an obtuse marginal branch, angiographically normal. It is a dominant vessel giving rise to a small posterior descending branch. 4. Right coronary artery is a nondominant vessel, very small caliber size, has 30-40% proximal stenosis, but I also think there was some vasospasm induced by catheter engagement. No significant high-grade stenosis. CONCLUSIONS: 1. Minimal luminal irregularities in the coronary arteries. 2. Nonischemic cardiomyopathy. PLAN: Will continue with guideline directed medical therapy. Pipe Mcintosh MD JAVIER/TL , 11:47 AM , 11:53 AM
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
[2018-06-10] MEDS ORDERED: Iohexol 350 MG/ML 50 ML Vial (for Cath Lab) IVCONTRAST ONE (17:55)
[2018-06-11] MEDS ORDERED: Pharmacy Ordered Lab Info OTHER ONE (02:45)
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
[2018-06-11 09:21] LABS: Baso % (Auto) 0.3 % (0.0-2.0); Eos # (Auto) 0.3 th/mm3 (0.0-0.4); Eos % (Auto) 3.1 % (0.0-4.0); Hematocrit 33.4 % (35.0-46.0); Hemoglobin 11.1 gm/dL (11.6-15.3); Lymph # (Auto) 2.3 th/mm3 (1.0-4.8); Mean Corpuscular HGB Conc 33.4 % (32.0-36.0); Mean Corpuscular Hemoglobin 30.1 pg (27.0-34.0); Mean Corpuscular Volume 90.2 fL (80.0-100.0); Mean Platelet Volume 9.5 fL (7.0-11.0); Mono # (Auto) 0.8 th/mm3 (0.0-0.9); Mono % (Auto) 8.8 % (0.0-8.0); Neut # (Auto) 5.4 th/mm3 (1.8-7.7); Neut % (Auto) 61.8 % (16.0-70.0); Platelet Count 355 th/mm3 (150-450); White Blood Count 8.7 th/mm3 (4.0-11.0)
--- NOTE | 2018-06-11 09:21 | P.PN ---
Subjective Interval history: ALERT NO SOB Physical Exam Vital signs: Vital Signs 06/10/18 11:48 06/10/18 20:00 06/11/18 00:00 Temperature 98 F 97.3 F L Pulse Rate 106 H 94 H Respiratory Rate 18 18 Blood Pressure 126/71 97/55 L Pulse Oximetry 96 95 94 L 06/11/18 04:00 Temperature 97.5 F L Pulse Rate 72 Respiratory Rate 16 Blood Pressure 99/58 L Pulse Oximetry 95 Intake & Output 06/10/18 06/11/18 06/11/18 18:59 06:59 18:59 Intake Total 0 / 0 Output Total 1100 / 1100 Balance -1100 / -1100 Weight 54.9 kg Intake: Oral 0 / 0 Output: Urine Amount (Catheter) 500 / 500 Indwelling Urethral Catheter 500 / 500 Urine Amount (Stoma) 600 / 600 Nephrostomy Tube 600 / 600 Other: Date of Last Bowel Movement 06/10/18 06/10/18 # Bowel Movements 1 Narrative: GENERAL: Well-developed well-nourished. In no acute distress. NECK: No carotid bruits. No JVD. Cervical collar in place. CARDIOVASCULAR: Regular rate and rhythm. No murmur appreciated. Right groin access site with intact pulses and no swelling, ecchymosis, tenderness. RESPIRATORY: No accessory muscle use. Clear to auscultation. Breath sounds equal bilaterally. MUSCULOSKELETAL: No clubbing or cyanosis. No edema. NEUROLOGICAL: Awake and alert. Normal speech. - Urinary Catheter Management Indwelling Urethral Catheter Cath placed during this visit: yes Reason for continuing: Acute urinary retention Insertion date: 06/01/18 Insertion time: 15:05 Results - Labs CBC & Chem 7: 06/09/18 08:50 06/10/18 09:12 Laboratory Results - last 24 hr 06/10/18 09:12 Sodium 139 Potassium 3.7 Chloride 107 Carbon Dioxide 22.5 Anion Gap 10 BUN 15 Creatinine 1.06 H Estimated GFR 53 L Random Glucose 90 Calcium 8.8 - Procedures For internalization with right JJ stent per IR this week. Assessment and Plan - Plan RESPIRATORY FAILURE CHF PNA? ASPIRATION PLAN O2 NEEDED ANTIBX PULM TOILET F/U CXRAY
[2018-06-11] MEDS: levoFLOXacin Liq 25 MG/ML 100 ML Bottle PO SCH (09:24)
[2018-06-11] MEDS: Lactobacillus Acidophilus/L. Spores Tablet PO SCH ×3 (09:25→17:25)
[2018-06-11] MEDS: Famotidine 20 MG Tablet PO SCH ×2 (09:26→21:46)
[2018-06-11] MEDS: Furosemide 40 MG Tablet PO SCH (09:26)
[2018-06-11] MEDS: Lisinopril 5 MG Tablet PO SCH (09:26)
[2018-06-11] MEDS: Carvedilol 6.25 MG Tablet PO SCH ×2 (09:34→21:46)
[2018-06-11 09:45] LABS: Calcium 8.9 mg/dL (8.5-10.1); Carbon Dioxide 22.2 meq/L (21.0-32.0)
[2018-06-11] MEDS ORDERED: Levofloxacin 500 mg Premix Inj 500 MG/100 ML PIGGYBACK IV.SIG ONE (09:59)
[2018-06-11] MEDS ORDERED: fentaNYL Citrate Inj 250 MCG/5 ML Ampul ONE (09:59)
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
--- NOTE | 2018-06-11 11:19 | P.RAD ---
Post Procedure Progress Note - Pre Procedure Diagnosis (1) Acute renal failure (2) Kidney stone - Post Procedure Diagnosis (1) Acute renal failure (2) Kidney stone - Procedure Information Procedure Date: 06/11/18 Supervising Radiologist: David Ag MD Anesthesia: Conscious Sedation - Plan of Activity Patient to Unit: Nursing Unit Patient Condition: Good See PACS Report for procedural detail/treatment. Drainage Procedure right Ureteral Stent Placement Fluid Description: Clear
[2018-06-11] MEDS ORDERED: Iohexol 350 MG/ML 50 ML Vial (for Rad Diag) IVCONTRAST ONE (11:26)
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
[2018-06-11] MEDS: Acetaminophen 325 MG Tablet PO PRN (23:33)
[2018-06-12] MEDS: Acetaminophen 325 MG Tablet PO PRN ×3 (04:40→22:10)
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
[2018-06-12] MEDS: Lactobacillus Acidophilus/L. Spores Tablet PO SCH ×3 (09:09→17:01)
[2018-06-12] MEDS: Furosemide 40 MG Tablet PO SCH (09:09)
[2018-06-12] MEDS: Lisinopril 5 MG Tablet PO SCH (09:09)
[2018-06-12] MEDS: Carvedilol 6.25 MG Tablet PO SCH ×2 (09:10→22:10)
[2018-06-12] MEDS: Famotidine 20 MG Tablet PO SCH ×2 (09:10→22:10)
[2018-06-12] MEDS: levoFLOXacin Liq 25 MG/ML 100 ML Bottle PO SCH (09:12)
[2018-06-12 09:43] LABS: Baso % (Auto) 0.6 % (0.0-2.0); Eos # (Auto) 0.1 th/mm3 (0.0-0.4); Eos % (Auto) 1.5 % (0.0-4.0); Hematocrit 31.9 % (35.0-46.0); Hemoglobin 10.7 gm/dL (11.6-15.3); Lymph # (Auto) 1.9 th/mm3 (1.0-4.8); Mean Corpuscular HGB Conc 33.6 % (32.0-36.0); Mean Corpuscular Hemoglobin 30.3 pg (27.0-34.0); Mean Corpuscular Volume 90.3 fL (80.0-100.0); Mean Platelet Volume 9.7 fL (7.0-11.0); Mono # (Auto) 0.9 th/mm3 (0.0-0.9); Mono % (Auto) 10.4 % (0.0-8.0); Neut # (Auto) 5.5 th/mm3 (1.8-7.7); Neut % (Auto) 65.5 % (16.0-70.0); Platelet Count 363 th/mm3 (150-450); Red Blood Count 3.54 mil/mm3 (4.00-5.30); Red Cell Distribution Width 13.9 % (11.6-17.2); White Blood Count 8.5 th/mm3 (4.0-11.0)
[2018-06-12 10:00] LABS: Calcium 8.8 mg/dL (8.5-10.1); Carbon Dioxide 21.1 meq/L (21.0-32.0); Potassium 3.6 meq/L (3.5-5.1)
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
[2018-06-12 10:53] LABS: Chol/HDL Ratio 6.61 Ratio; HDL Cholesterol 20.7 mg/dL (40.0-60.0)
--- NOTE | 2018-06-12 20:07 | P.PN ---
Subjective Interval history: ALERT UP IN [facility] IN [facility] Physical Exam Vital signs: Vital Signs 06/12/18 00:00 06/12/18 04:00 06/12/18 08:00 Temperature 97.6 F 97.2 F L 97.8 F Pulse Rate 84 77 84 Respiratory Rate 18 18 20 Blood Pressure 112/70 111/52 L 103/54 L Pulse Oximetry 96 95 97 06/12/18 12:00 06/12/18 16:00 Temperature 97.3 F L Pulse Rate 88 105 H Respiratory Rate 20 Blood Pressure 110/56 L Pulse Oximetry 97 Intake & Output 06/12/18 06/12/18 06/13/18 06:59 18:59 06:59 Intake Total 720 / 720 Output Total 800 / 800 Balance -80 / -80 Weight 56 kg Intake: Oral 720 / 720 Output: Urine 800 / 800 Other: # Bowel Movements 0 Narrative: GENERAL: Well-nourished, well-developed middle aged female patient in [facility]. SKIN: Warm and dry. No rash. HEENT: Normocephalic. Atraumatic. NECK: Cervical collar in place. CARDIOVASCULAR: Regular rate and rhythm. No murmur appreciated. RESPIRATORY: No accessory muscle use. Clear to auscultation. Breath sounds equal bilaterally. GASTROINTESTINAL: Abdomen soft, non-tender, nondistended. Normoactive bowel sounds x4. MUSCULOSKELETAL: No obvious deformities. Extremities without clubbing, cyanosis , or edema. NEUROLOGICAL: Awake and alert. No obvious cranial nerve deficits. Motor grossly within normal limits. Moving all extremities spontaneously. Normal speech. - Urinary Catheter Management Indwelling Urethral Catheter Cath placed during this visit: yes Reason for continuing: Acute urinary retention Insertion date: 06/01/18 Insertion time: 15:05 Results - Labs CBC & Chem 7: 06/12/18 09:00 06/12/18 09:00 Laboratory Results - last 24 hr 06/12/18 06/12/18 06/12/18 09:00 09:00 09:00 WBC 8.5 RBC 3.54 L Hgb 10.7 L Hct 31.9 L MCV 90.3 MCH 30.3 MCHC 33.6 RDW 13.9 Plt Count 363 MPV 9.7 Neut % (Auto) 65.5 Lymph % (Auto) 22.0 [place] % (Auto) 10.4 H Eos % (Auto) 1.5 Baso % (Auto) 0.6 Neut # (Auto) 5.5 Lymph # (Auto) 1.9 [place] # (Auto) 0.9 Eos # (Auto) 0.1 Baso # (Auto) 0.0 WBC Differential . Differential Comment Auto diff final Sodium 138 Potassium 3.6 Chloride 107 Carbon Dioxide 21.1 Anion Gap 10 BUN 21 H Creatinine 1.26 H Estimated GFR 43 L Random Glucose 99 Calcium 8.8 Triglycerides 273 H Cholesterol 137 LDL Cholesterol, Calc 62 HDL Cholesterol 20.7 L Cholesterol/HDL Ratio 6.61 - Procedures For internalization with right JJ stent per IR this week. Assessment and Plan - Plan RESPIRATORY FAILURE CHF PNA? ASPIRATION PLAN O2 NEEDED ANTIBX PULM TOILET
[2018-06-13] MEDS ORDERED: Furosemide 20 MG Tablet PO SCH (09:00)
[2018-06-13] MEDS: Lactobacillus Acidophilus/L. Spores Tablet PO SCH ×3 (09:11→17:34)
[2018-06-13] MEDS: Carvedilol 6.25 MG Tablet PO SCH ×2 (09:11→20:56)
[2018-06-13] MEDS: Lisinopril 5 MG Tablet PO SCH (09:12)
[2018-06-13] MEDS: Famotidine 20 MG Tablet PO SCH ×2 (09:13→20:57)
--- NOTE | 2018-06-13 09:20 | P.PN ---
Subjective Interval history: ALERT NO SOB NO FEVER Physical Exam Vital signs: Vital Signs 06/12/18 12:00 06/12/18 16:00 06/12/18 20:00 Temperature 97.3 F L 97.9 F 98.2 F Pulse Rate 88 101 H 99 H Respiratory Rate 20 20 18 Blood Pressure 110/56 L 100/57 L 97/55 L Pulse Oximetry 97 97 97 06/13/18 00:00 06/13/18 04:00 06/13/18 08:00 Temperature 97.1 F L 97.4 F L 98.0 F Pulse Rate 89 92 H 95 H Respiratory Rate 18 20 18 Blood Pressure 99/53 L 114/62 131/69 Pulse Oximetry 95 97 98 Intake & Output 06/12/18 06/13/18 06/13/18 18:59 06:59 18:59 Intake Total 840 / 840 1020 / 1020 Output Total 1450 / 1450 Balance 840 / 840 -430 / -430 Weight 56.9 kg Intake: Oral 840 / 840 1020 / 1020 Output: Urine Amount (Catheter) 1450 / 1450 Indwelling Urethral Catheter 1450 / 1450 Other: # Voids 1 Date of Last Bowel Movement 06/13/18 # Bowel Movements 2 2 Narrative: GENERAL: Well-nourished, well-developed middle aged female patient in [facility]. SKIN: Warm and dry. No rash. HEENT: Normocephalic. Atraumatic. NECK: Cervical collar in place. CARDIOVASCULAR: Regular rate and rhythm. No murmur appreciated. RESPIRATORY: No accessory muscle use. Clear to auscultation. Breath sounds equal bilaterally. GASTROINTESTINAL: Abdomen soft, non-tender, nondistended. Normoactive bowel sounds x4. MUSCULOSKELETAL: No obvious deformities. Extremities without clubbing, cyanosis , or edema. NEUROLOGICAL: Awake and alert. No obvious cranial nerve deficits. Motor grossly within normal limits. Moving all extremities spontaneously. Normal speech. - Urinary Catheter Management Indwelling Urethral Catheter Cath placed during this visit: yes Reason for continuing: Other continuation reason Insertion date: 06/01/18 Insertion time: 15:05 Results - Labs CBC & Chem 7: 06/12/18 09:00 06/12/18 09:00 Laboratory Results - last 24 hr 08/01/18 08/01/18 08/01/18 09:00 09:00 09:00 WBC 8.5 RBC 3.54 L Hgb 10.7 L Hct 31.9 L MCV 90.3 MCH 30.3 MCHC 33.6 RDW 13.9 Plt Count 363 MPV 9.7 Neut % (Auto) 65.5 Lymph % (Auto) 22.0 [place] % (Auto) 10.4 H Eos % (Auto) 1.5 Baso % (Auto) 0.6 Neut # (Auto) 5.5 Lymph # (Auto) 1.9 [place] # (Auto) 0.9 Eos # (Auto) 0.1 Baso # (Auto) 0.0 WBC Differential . Differential Comment Auto diff final Sodium 138 Potassium 3.6 Chloride 107 Carbon Dioxide 21.1 Anion Gap 10 BUN 21 H Creatinine 1.26 H Estimated GFR 43 L Random Glucose 99 Calcium 8.8 Triglycerides 273 H Cholesterol 137 LDL Cholesterol, Calc 62 HDL Cholesterol 20.7 L Cholesterol/HDL Ratio 6.61 - Procedures For internalization with right JJ stent per IR this week. Assessment and Plan - Plan RESPIRATORY FAILURE CHF PNA? ASPIRATION PLAN O2 NEEDED ANTIBX PULM TOILET
--- NOTE | 2018-06-13 10:01 | P.PNURO ---
Subjective Patient symptoms today: Pt seen and examined. IR placed right JJ stent and removed right PCNT last week. Biggs removed this AM. Objective Vital Signs: Vital Signs 06/12/18 12:00 06/12/18 16:00 06/12/18 20:00 Temperature 97.3 F L 97.9 F 98.2 F Pulse Rate 88 101 H 99 H Respiratory Rate 20 20 18 Blood Pressure 110/56 L 100/57 L 97/55 L Pulse Oximetry 97 97 97 06/13/18 00:00 06/13/18 04:00 06/13/18 08:00 Temperature 97.1 F L 97.4 F L 98.0 F Pulse Rate 89 92 H 95 H Respiratory Rate 18 20 18 Blood Pressure 99/53 L 114/62 131/69 Pulse Oximetry 95 97 98 Intake & Output 06/12/18 06/13/18 06/13/18 18:59 06:59 18:59 Intake Total 840 / 840 1020 / 1020 Output Total 1450 / 1450 Balance 840 / 840 -430 / -430 Weight 56.9 kg Intake: Oral 840 / 840 1020 / 1020 Output: Urine Amount (Catheter) 1450 / 1450 Indwelling Urethral Catheter 1450 / 1450 Other: # Voids 1 Date of Last Bowel Movement 06/13/18 # Bowel Movements 2 2 Result Diagrams: 06/12/18 09:00 06/12/18 09:00 Medications and IVs: Active Medications Generic Name Dose Route Start Last Admin Trade Name Freq PRN Reason Stop Dose Admin Acetaminophen 650 mg 06/01/18 14:53 06/12/18 22:10 Tylenol PO 650 mg Q4H PRN Administration pain or temp >101 Albuterol 1 ampul 06/04/18 08:06 06/06/18 07:51 Duoneb Neb (Prn) NEB 1 ampul Q4HR NEB PRN Administration sob/ wheezing Atorvastatin Calcium 20 mg 06/10/18 09:00 06/13/18 09:12 Lipitor PO 20 mg DAILY AIRAM Administration Bethanechol Chloride 25 mg 06/11/18 15:37 06/13/18 09:12 Urecholine PO 06/14/18 23:59 25 mg TID AIRAM Administration Carvedilol 6.25 mg 06/09/18 09:00 06/13/18 09:11 Coreg PO 6.25 mg BID AIRAM Administration Famotidine 10 mg 06/12/18 21:00 06/13/18 09:13 Pepcid PO 10 mg BID AIRAM Administration Furosemide 20 mg 06/13/18 09:00 06/13/18 09:11 Lasix PO 20 mg DAILY AIRAM Administration Gabapentin 300 mg 06/01/18 18:00 Neurontin PO TID AIRAM Lactated Ringer's 1,000 mls @ 30 mls/hr 06/01/18 23:00 06/04/18 17:28 Lr 1000 Ml Inj IV.SIG Not Given .Q24H AIRAM Lactobacillus Acidophilus 1 tab 06/01/18 18:00 06/13/18 09:11 Lactinex PO 1 tab TID AIRAM Administration Lisinopril 5 mg 06/08/18 09:00 06/13/18 09:12 Prinivil PO 5 mg DAILY AIRAM Administration Miscellaneous 1 each 06/12/18 16:00 Pill Splitter OTHER UNSCH AIRAM Ondansetron HCl 4 mg 06/01/18 14:53 Zofran Inj IV.PUSH Q8H PRN nausea Potassium Chloride 20 meq 06/08/18 09:00 06/13/18 09:11 K-Dur PO 20 meq DAILY AIRAM Administration Sodium Chloride 2 spray 06/08/18 13:52 Grand Nasal [place] EACH NARE Q4H PRN nasal congestion Sodium Chloride 2 ml 06/10/18 21:00 06/13/18 09:16 Ns Flush IV.FLUSH 2 ml BID AIRAM Administration Sodium Chloride 2 ml 06/10/18 11:44 Ns Flush IV.FLUSH PRN PRN FLUSH AFTER USING IV ACCESS Terbutaline Sulfate 1 mg 06/01/18 20:59 Brethine Inj SQ UNSCH PRN For Extravasation Objective Remarks: Abd:soft,nt,nd Urine clearing from right PCNT. 06/04 Abd:soft,nt,nd Urine clearing from right PCNT. 06/05 Abd:soft,nt,nd Urine clearing from right PCNT. 06/06 Abd:soft,nt,nd Urine clearing from right PCNT. Biggs: urine clear 06/13 Abd:soft,nt,nd Biggs: urine clear; removed at bedside Assessment and Plan - Plan 57 y.o female with probable urosepsis and negative urine and blood cultures Continue IV abx Maintain foely and PCNT For internalization with right JJ stent per IR this week. 06/04 57 y.o female with probable urosepsis and negative urine and blood cultures Continue IV abx Maintain foely and PCNT For internalization with right JJ stent per IR this week. 06/05 57 y.o female with probable urosepsis and negative urine and blood cultures Continue IV abx Maintain foely and PCNT For internalization with right JJ stent per IR in AM. 06/06 57 y.o female with probable urosepsis and negative urine and blood cultures Continue IV abx Maintain foely and PCNT For internalization with right JJ stent per IR in AM if stable 06/13 57 y.o female with 1cm proximal right UPJ stone s/p stent internalization by IR last week Void trial today Pt will need Right ESWL in the future which can be done as outpt. Hopefully pt with not need anticoagulation and life vest will not interfere with ESWL. Will d /w cardiology.
[2018-06-13 10:07] LABS: Calcium 9.2 mg/dL (8.5-10.1); Carbon Dioxide 20.6 meq/L (21.0-32.0); Potassium 3.7 meq/L (3.5-5.1)
[2018-06-13] MEDS: Acetaminophen 325 MG Tablet PO PRN (12:03)
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
[2018-06-14] MEDS: Famotidine 20 MG Tablet PO SCH (08:03)
[2018-06-14] MEDS: Lactobacillus Acidophilus/L. Spores Tablet PO SCH ×3 (08:03→17:19)
[2018-06-14] MEDS: Carvedilol 6.25 MG Tablet PO SCH (08:05)
[2018-06-14] MEDS: Lisinopril 5 MG Tablet PO SCH (08:05)
[2018-06-14] MEDS: Acetaminophen 325 MG Tablet PO PRN ×2 (08:05→15:00)
[2018-06-14 09:17] LABS: Calcium 9.1 mg/dL (8.5-10.1); Carbon Dioxide 20.8 meq/L (21.0-32.0); Potassium 3.9 meq/L (3.5-5.1)
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
== END 2018-06-14 18:55 ==
LOC: NEPC 10:43 → NEDA 14:14 → N03 18:02 → N04 06-07 19:21
PROVIDERS: ADMIT Hospitalist; ATTEND Hospitalist

== ENCOUNTER 2018-07-10 23:30 | Inpatient (IN) ==
[2018-07-10] MEDS ORDERED: Ketorolac Inj 30 MG/ML (IVP) Vial IV.PUSH ONE (23:57)
[2018-07-10] MEDS ORDERED: Sodium Chlor 0.9% Inj 250 ML IV.SIG ONE (23:58)
[2018-07-11 00:34] LABS: Baso # (Auto) 0.1 th/mm3 (0.0-0.2); Baso % (Auto) 0.4 % (0.0-2.0); Eos # (Auto) 0.5 th/mm3 (0.0-0.4); Eos % (Auto) 3.5 % (0.0-4.0); Hemoglobin 10.6 gm/dL (11.6-15.3); Lymph # (Auto) 2.9 th/mm3 (1.0-4.8); Lymph % (Auto) 18.5 % (9.0-44.0); Mean Corpuscular HGB Conc 34.3 % (32.0-36.0); Mean Corpuscular Hemoglobin 30.8 pg (27.0-34.0); Mean Corpuscular Volume 89.8 fL (80.0-100.0); Mean Platelet Volume 8.2 fL (7.0-11.0); Mono # (Auto) 1.2 th/mm3 (0.0-0.9); Mono % (Auto) 7.4 % (0.0-8.0); Neut # (Auto) 11.2 th/mm3 (1.8-7.7); Neut % (Auto) 70.2 % (16.0-70.0); Platelet Count 320 th/mm3 (150-450); Red Blood Count 3.45 mil/mm3 (4.00-5.30); Red Cell Distribution Width 14.7 % (11.6-17.2); White Blood Count 15.9 th/mm3 (4.0-11.0)
[2018-07-11 00:38] LABS: Alanine Aminotransferase 16 U/L (10-53); Albumin 3.5 g/dL (3.4-5.0); Anion Gap 10 meq/L (5-15); Aspartate Aminotransferase 12 U/L (15-37); Blood Urea Nitrogen 32 mg/dL (7-18); Carbon Dioxide 22.1 meq/L (21.0-32.0); Chloride 109 meq/L (98-107); Glomerular Filtration Rate 18 mL/min (>89); Glucose,Random 96 mg/dL (74-106); Potassium 4.1 meq/L (3.5-5.1); Sodium 141 meq/L (136-145)
[2018-07-11 00:40] LABS: Alkaline Phosphatase 99 U/L (45-117); Total Protein 8.1 g/dL (6.4-8.2)
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
[2018-07-11 01:45] LABS: Bilirubin,Urine Negative (Negative); Clarity,Urine Turbid (Clear); Color,Urine Yellow (Yellw/Straw); Glucose,Urine (UA) Negative (Negative); Leukocyte Esterase,Urine Moderate (Negative); Mucus,Urine Few /lpf (Occasional); Nitrite,Urine Negative (Negative); Renal Epithelial Cells,Urine 4 /hpf; Specific Gravity,Urine 1.021 (1.002-1.035)
--- NOTE | 2018-07-11 03:10 | ED ---
HPI General Chief complaint: Abdominal Pain Stated complaint: chest tightness, Poss kidney infection Time Seen by Provider: 07/10/18 23:50 Source: patient Mode of arrival: ambulatory Limitations: no limitations History of Present Illness HPI narrative: Patient is a 58-year-old female who comes in complaining of suprapubic pain as well as flank pain. She says this started this morning. She says she has some burning with urination. She denies fever chills. She was recently admitted for urosepsis and has had multiple medical complications. She denies nausea or vomiting. Severity is mild to moderate. Related Data Home Medications Medication Instructions Recorded Confirmed Lactobacillus acidophilus 1 tab PO TID 06/01/18 07/10/18 [Acidophilus] Saccharomyces boulardii [Florastor] 250 mg PO TID 06/01/18 07/10/18 kyxekvsoxu-danylsapjo-nob-cod 1 cap PO Q8HR PRN 06/01/18 07/10/18 calcium carbonate [Calcium 600] 600 mg PO DAILY 06/01/18 07/10/18 famotidine [Pepcid] 20 mg PO BID 06/01/18 07/10/18 gabapentin 300 mg PO TID 06/01/18 07/10/18 lisinopril 5 mg PO DAILY 06/01/18 07/10/18 magnesium hydroxide [Milk of 30 ml PO BID 06/01/18 07/10/18 Magnesia] meclizine 25 mg PO Q8HR PRN 06/01/18 07/10/18 methocarbamol 500 mg PO Q8HR PRN 06/01/18 07/10/18 Previous Rx's Medication Instructions Recorded acetaminophen 650 mg PO Q4H PRN tab 06/14/18 atorvastatin 20 mg PO DAILY tab 06/14/18 bethanechol chloride [Urecholine] 25 mg PO TID tab 06/14/18 carvedilol [Coreg] 6.25 mg PO BID tab 06/14/18 furosemide 20 mg PO DAILY tab 06/14/18 ipratropium-albuterol 1 amp NEB Q4HR NEB PRN ml 06/14/18 potassium chloride 20 meq PO DAILY tab 06/14/18 Allergies Allergy/AdvReac Type Severity Reaction Status Date / Time No Known Allergies Allergy Verified 07/10/18 23:49 Review of Systems ROS: all other systems reviewed are negative Constitutional Denies chills and Denies fever(s) ENT Denies dizziness Cardiovascular Denies chest pain Respiratory Denies dyspnea and Denies dyspnea on exertion Gastrointestinal Reports abdominal pain, Denies nausea and Denies vomiting Genitourinary Reports dysuria and Reports flank pain Musculoskeletal Denies myalgias and Denies arthralgias Integumentary/Breasts Denies rash Neurologic Denies focal weakness and Denies numbness [facility] Medical History Medical History C1 cervical fracture (Acute) Tibial plateau fracture (Acute) Fracture of right ulna (Acute) Left ankle injury (Acute) Left knee injury (Acute) Right radial fracture (Acute) Family History Family History Mother CAD (coronary artery disease) Stroke Father CAD (coronary artery disease) Social History Social History Substance History: No History of Abuse Smoking Status: Former smoker How Often Do You Have a Drink Containing Alcohol: Never Recent Travel in [facility] within the Last 8 Weeks: No Recent Out of Country Travel within the Last 8 Weeks: No Immunization History Tetanus Immunization: Unsure Hx Influenza Vaccine This Season: No Exam Narrative Exam Narrative: GENERAL: Awake and alert, no acute distress. SKIN: Focused skin assessment warm/dry. No wounds or signs of infection. HEAD: Atraumatic. Normocephalic. EYES: Pupils equal and round. No scleral icterus. ENT: Mucous membranes pink and moist. NECK: Trachea midline. No JVD. CARDIOVASCULAR: Regular rate and rhythm. No murmur appreciated. RESPIRATORY: No accessory muscle use. Clear to auscultation. Breath sounds equal bilaterally. GASTROINTESTINAL: Abdomen soft, nondistended. Tender to palpation of the suprapubic area. No rebound or guarding. MUSCULOSKELETAL: No obvious deformities. No clubbing. No cyanosis. No edema. NEUROLOGICAL: Awake and alert. No obvious cranial nerve deficits. Motor grossly within normal limits. Normal speech. PSYCHIATRIC: Appropriate mood and affect; insight and judgment normal. Course Initial Documented Vital Signs Temperature 97.4 F L 07/10/18 23:36 Pulse Rate 111 H 07/10/18 23:36 Respiratory Rate 18 07/10/18 23:36 Blood Pressure 80/50 L 07/10/18 23:36 Pulse Oximetry 97 07/10/18 23:36 Last Documented Vital Signs Temperature 97.4 F L 07/10/18 23:36 Pulse Rate 100 H 07/11/18 00:17 Respiratory Rate 20 07/11/18 00:17 Blood Pressure 91/53 L 07/11/18 00:17 Pulse Oximetry 99 07/11/18 00:17 Medical Decision Making MDM Narrative Medical decision making narrative: Patient is a 58-year-old female who comes in complaining of dysuria as well as flank pain. Exam shows suprapubic tenderness. IV established, labs sent. Labs concerning for an elevated creatinine that has nearly doubled since June 16. Patient given small boluses of IV fluids due to low blood pressure. Urinalysis has large amount of red blood cells as well as white blood cells. Covered with antibiotics. CT abdomen and pelvis performed shows stent in place with a renal stone. Patient will be admitted for management of the acute kidney injury. Medical Screen Exam Complete: Yes Emergency Medical Condition: Yes Differential Diagnosis Differential Diagnosis: UTI versus renal stone versus dehydration versus electrolyte abnormality Medical Records Medical records reviewed: Yes I reviewed the patient's medical records. Lab Data Lab results reviewed: Yes I reviewed the patient's lab results. Result diagrams: 07/10/18 23:59 07/10/18 23:59 Lab Results 07/10/18 07/10/18 07/10/18 Range/Units 23:59 23:59 23:59 WBC 15.9 H (4.0-11.0) th/mm3 RBC 3.45 L (4.00-5.30) mil/mm3 Hgb 10.6 L (11.6-15.3) gm/dL Hct 31.0 L (35.0-46.0) % MCV 89.8 (80.0-100.0) fL MCH 30.8 (27.0-34.0) pg MCHC 34.3 (32.0-36.0) % RDW 14.7 (11.6-17.2) % Plt Count 320 (150-450) th/mm3 MPV 8.2 (7.0-11.0) fL Neut % (Auto) 70.2 H (16.0-70.0) % Lymph % (Auto) 18.5 (9.0-44.0) % [place] % (Auto) 7.4 (0.0-8.0) % Eos % (Auto) 3.5 (0.0-4.0) % Baso % (Auto) 0.4 (0.0-2.0) % Neut # (Auto) 11.2 H (1.8-7.7) th/mm3 Lymph # (Auto) 2.9 (1.0-4.8) th/mm3 [place] # (Auto) 1.2 H (0.0-0.9) th/mm3 Eos # (Auto) 0.5 H (0.0-0.4) th/mm3 Baso # (Auto) 0.1 (0.0-0.2) th/mm3 WBC Differential . Differential Comment Auto diff final Sodium 141 (136-145) meq/L Potassium 4.1 (3.5-5.1) meq/L Chloride 109 H (98-107) meq/L Carbon Dioxide 22.1 (21.0-32.0) meq/L Anion Gap 10 (5-15) meq/L BUN 32 H (7-18) mg/dL Creatinine 2.74 H (0.50-1.00) mg/dL Estimated GFR 18 L (>89) mL/min Random Glucose 96 (74-106) mg/dL Lactic Acid 1.3 (0.4-2.0) mmol/L Calcium 9.0 (8.5-10.1) mg/dL Total Bilirubin 0.3 (0.2-1.0) mg/dL AST 12 L (15-37) U/L ALT 16 (10-53) U/L Alkaline Phosphatase 99 (45-117) U/L Total Protein 8.1 (6.4-8.2) g/dL Albumin 3.5 (3.4-5.0) g/dL Urine Color (Yellw/Straw) Urine Clarity (Clear) Urine pH (5.0-8.5) Ur Specific [place] (1.002-1.035) Urine Protein (Neg-Trace) mg/dL Urine Glucose (UA) (Negative) mg/dL Urine Ketones (Negative) mg/dL Urine Occult Blood (Negative) Urine Nitrate (Negative) Urine Bilirubin (Negative) Urine Urobilinogen (Less than 2) mg/dL Ur Leukocyte Esterase (Negative) Urine RBC (0-3) /hpf Urine WBC (0-5) /hpf Urine WBC Clumps (None) Ur Renal Epithelial Cell (None) /hpf Urine Mucus (Occasional) /lpf Micro UA Comment Ur Microscopic Review Urine Culture Comments 07/11/18 Range/Units 01:30 WBC (4.0-11.0) th/mm3 RBC (4.00-5.30) mil/mm3 Hgb (11.6-15.3) gm/dL Hct (35.0-46.0) % MCV (80.0-100.0) fL MCH (27.0-34.0) pg MCHC (32.0-36.0) % RDW (11.6-17.2) % Plt Count (150-450) th/mm3 MPV (7.0-11.0) fL Neut % (Auto) (16.0-70.0) % Lymph % (Auto) (9.0-44.0) % [place] % (Auto) (0.0-8.0) % Eos % (Auto) (0.0-4.0) % Baso % (Auto) (0.0-2.0) % Neut # (Auto) (1.8-7.7) th/mm3 Lymph # (Auto) (1.0-4.8) th/mm3 [place] # (Auto) (0.0-0.9) th/mm3 Eos # (Auto) (0.0-0.4) th/mm3 Baso # (Auto) (0.0-0.2) th/mm3 WBC Differential Differential Comment Sodium (136-145) meq/L Potassium (3.5-5.1) meq/L Chloride (98-107) meq/L Carbon Dioxide (21.0-32.0) meq/L Anion Gap (5-15) meq/L BUN (7-18) mg/dL Creatinine (0.50-1.00) mg/dL Estimated GFR (>89) mL/min Random Glucose (74-106) mg/dL Lactic Acid (0.4-2.0) mmol/L Calcium (8.5-10.1) mg/dL Total Bilirubin (0.2-1.0) mg/dL AST (15-37) U/L ALT (10-53) U/L Alkaline Phosphatase (45-117) U/L Total Protein (6.4-8.2) g/dL Albumin (3.4-5.0) g/dL Urine Color Yellow (Yellw/Straw) Urine Clarity Turbid H (Clear) Urine pH 5.0 (5.0-8.5) Ur Specific [place] 1.021 (1.002-1.035) Urine Protein 100 H (Neg-Trace) mg/dL Urine Glucose (UA) Negative (Negative) mg/dL Urine Ketones Negative (Negative) mg/dL Urine Occult Blood Moderate H (Negative) Urine Nitrate Negative (Negative) Urine Bilirubin Negative (Negative) Urine Urobilinogen Less than 2 (Less than 2) mg/dL Ur Leukocyte Esterase Moderate H (Negative) Urine RBC 72 H (0-3) /hpf Urine WBC (0-5) /hpf Urine WBC Clumps Many H (None) Ur Renal Epithelial Cell 4 (None) /hpf Urine Mucus Few H (Occasional) /lpf Micro UA Comment Culture indicated Ur Microscopic Review Not Reportable Urine Culture Comments Culture indicated Imaging Data Radiologist's impression: Abdomen/Pelvis CT 07/11/18 01:04 CONCLUSION: Right ureteral stent present as described. A persistent stone in the right renal pelvis. Mild prominence of the renal pelvis but no calyceal distention. Discharge Plan Discharge Disposition Patient Disposition: 30 Still Patient Discharge Condition Condition: Stable Discharge Details Diagnosis: Kidney stone, Acute renal failure, UTI (urinary tract infection) Physicians Team ED Provider: Kerline Santizo Primary Care Provider: Primary Care Radha,Karin Attending Provider: Rom Tubbs Other Providers: Graeme Friedman Discharge Interventions Interventions: ED Discharge Assessment Last Done: 07/11/18 04:29 Vital Signs Last Done: 07/11/18 00:17 Status ED Status: Left Department Discharge Information Discharge Date/Time: 07/11/18 04:29
[2018-07-11] MEDS ORDERED: Sodium Chlor 0.9% Inj 250 ML IV.SIG ONE ×2 (03:11→20:57)
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
[2018-07-11] MEDS: Sod Chloride 0.9% Inj 1,000 ML IV.CONT SCH (04:56)
--- NOTE | 2018-07-11 12:58 | P.PN ---
Subjective Interval history: Follow-up visit urinary tract infection, acute kidney injury, history of kidney stones, status post renal stent with removal 1 week. Patient seen and examined today. States that she was seen by Dr. Ulloa and states follow up in their office when discharged. Patient states that she is feeling a lot better after antibiotic use. Pain is controlled. Denies SOB/ dyspnea. Denies chest pain, palpitations, headaches, dizziness. Denies fevers, chills, n/v/d. Denies hematuria, dysuria. Physical Exam Vital signs: Vital Signs 07/10/18 23:36 07/11/18 00:17 07/11/18 04:00 Temperature 97.4 F L 97.4 F L Pulse Rate 111 H 100 H 80 Respiratory Rate 18 20 20 Blood Pressure 80/50 L 91/53 L 66/40 L Pulse Oximetry 97 99 100 07/11/18 05:42 07/11/18 08:00 07/11/18 09:09 Temperature 97.6 F Pulse Rate 94 H 96 H Respiratory Rate 16 Blood Pressure 76/47 L 81/48 L Pulse Oximetry 99 07/11/18 10:24 07/11/18 12:00 Temperature 98.3 F Pulse Rate 104 H Respiratory Rate 18 16 Blood Pressure 82/45 L Pulse Oximetry Intake & Output 07/10/18 07/11/18 07/11/18 18:59 06:59 18:59 Intake Total 600 / 600 Balance 600 / 600 Weight 54.431 kg Intake: IV 600 / 600 NS Inj 250 ML @ Wide Open IV. 500 / 500 SIG BOLUS ONE Rx#:[id number] Rocephin Inj 1,000 MG In NS Inj 100 / 100 100 ML @ 200 mls/hr IV.SIG ONCE ONE Rx#:[id number] Oral 0 / 0 Other: # Voids 2 Date of Last Bowel Movement 07/10/18 Narrative: GENERAL: This is a well-nourished, well-developed patient, in no apparent distress. SKIN: Warm and dry. HEENT: Normocephalic. Pupils equal round and reactive. Nose without bleeding. Airway patent. NECK: Trachea midline. Stebbins J collar in place. CARDIOVASCULAR: Regular rate and rhythm without murmurs, gallops, or rubs. RESPIRATORY: Diminished BS. No wheezes, rales, or rhonchi. GASTROINTESTINAL: Abdomen soft, non-tender, nondistended. Bowel Sounds normoactive x4. MUSCULOSKELETAL: Extremities without clubbing, cyanosis, or edema. NEUROLOGICAL: Awake and alert. Oriented to time, place, person. No focal neuro deficit. Moves all extremities. Normal speech. Results - Labs CBC & Chem 7: 07/10/18 23:59 07/10/18 23:59 Laboratory Results - last 24 hr 07/10/18 07/10/18 07/10/18 23:59 23:59 23:59 WBC 15.9 H RBC 3.45 L Hgb 10.6 L Hct 31.0 L MCV 89.8 MCH 30.8 MCHC 34.3 RDW 14.7 Plt Count 320 MPV 8.2 Neut % (Auto) 70.2 H Lymph % (Auto) 18.5 [place] % (Auto) 7.4 Eos % (Auto) 3.5 Baso % (Auto) 0.4 Neut # (Auto) 11.2 H Lymph # (Auto) 2.9 [place] # (Auto) 1.2 H Eos # (Auto) 0.5 H Baso # (Auto) 0.1 WBC Differential . Differential Comment Auto diff final Sodium 141 Potassium 4.1 Chloride 109 H Carbon Dioxide 22.1 Anion Gap 10 BUN 32 H Creatinine 2.74 H Estimated GFR 18 L Random Glucose 96 Lactic Acid 1.3 Calcium 9.0 Total Bilirubin 0.3 AST 12 L ALT 16 Alkaline Phosphatase 99 Total Protein 8.1 Albumin 3.5 Urine Color Urine Clarity Urine pH Ur Specific [place] Urine Protein Urine Glucose (UA) Urine Ketones Urine Occult Blood Urine Nitrate Urine Bilirubin Urine Urobilinogen Ur Leukocyte Esterase Urine RBC Urine WBC Urine WBC Clumps Ur Renal Epithelial Cell Urine Mucus Micro UA Comment Ur Microscopic Review Urine Culture Comments 07/11/18 01:30 WBC RBC Hgb Hct MCV MCH MCHC RDW Plt Count MPV Neut % (Auto) Lymph % (Auto) [place] % (Auto) Eos % (Auto) Baso % (Auto) Neut # (Auto) Lymph # (Auto) [place] # (Auto) Eos # (Auto) Baso # (Auto) WBC Differential Differential Comment Sodium Potassium Chloride Carbon Dioxide Anion Gap BUN Creatinine Estimated GFR Random Glucose Lactic Acid Calcium Total Bilirubin AST ALT Alkaline Phosphatase Total Protein Albumin Urine Color Yellow Urine Clarity Turbid H Urine pH 5.0 Ur Specific [place] 1.021 Urine Protein 100 H Urine Glucose (UA) Negative Urine Ketones Negative Urine Occult Blood Moderate H Urine Nitrate Negative Urine Bilirubin Negative Urine Urobilinogen Less than 2 Ur Leukocyte Esterase Moderate H Urine RBC 72 H Urine WBC Urine WBC Clumps Many H Ur Renal Epithelial Cell 4 Urine Mucus Few H Micro UA Comment Culture indicated Ur Microscopic Review Not Reportable Urine Culture Comments Culture indicated - Imaging Impressions Abdomen/Pelvis CT 07/11/18 01:04 CONCLUSION: Right ureteral stent present as described. A persistent stone in the right renal pelvis. Mild prominence of the renal pelvis but no calyceal distention. Assessment and Plan - Plan 58-year-old female with a history of kidney stones in the past status post renal stenting with removal who presents with a one-week history of urinary urgency, constant right-sided flank pain, subsequently left-sided flank pain. Sepsis, SIRS Pyelonephritis, bilateral nephrolithiasis causing moderate obstruction seen on CT Urinary tract infection -Continue Rocephin for now. -Urine culture pending, follow-up -Consulted urology. Recommends Flomax daily, antibiotic therapy to continue. May discharge home from GIs perspective and follow-up with Dr. Ulloa. Possible plan for shockwave lithotripsy. -Follow-up labs in a.m. Acute kidney injury -Possibly sepsis related. IV fluids for hydration. -Avoid nephrotoxins. Hold furosemide, potassium, bethanechol, lisinopril -Follow renal indicis History of CHF HTN HLD -Appears to be not in exacerbation -continue home medication Coreg with parameters, atorvastatin -LifeVest in place. Recent cardiac catheterization -ECHO EF 20%, monitor for fluid overload. DVT Prop SCD Code Status: Full code Discussed Condition With: Patient, nurse Discharge Planning: Plan to DC home when clinically improved.
--- NOTE | 2018-07-11 13:08 | P.CONURO ---
History of Present Illness Consult date: 07/11/18 Requesting Physician: Rom Tubbs Reason for Consult: Right renal calculus Primary Care Provider: No Primary Care Physician Family Provider: No Primary Care Physician History of Present Illness: 58-year-old female with history of a 12 mm right renal calculus who was recently evaluated by my associate Dr. Ulloa and underwent right stent insertion. Patient presents now with intermittent right flank pain likely related to stent irritation along with a possible overlying UTI. Since being started antibiotics, the patient reports that her symptoms have significantly improved. She is anxious to go home. Review of Systems All other systems reviewed negative except as stated in HPI PMFSH - History History Provided By: Patient - Medical History Medical History: Medical History (Last Reviewed 07/11/18 @ 04:59 by Kerline Santizo MD) C1 cervical fracture Tibial plateau fracture Fracture of right ulna Left ankle injury Left knee injury Right radial fracture - Family History Family History: Family History (Last Reviewed 07/11/18 @ 04:59 by Kerline Santizo MD) Mother CAD (coronary artery disease) Stroke Father CAD (coronary artery disease) - Tobacco History Second Hand Smoke Exposure: No Tobacco Use In Past 30 Days: No Smoking Status: Former smoker - Alcohol History How Often Do You Have a Drink Containing Alcohol: Monthly or less - Substance Use History Substance History: No History of Abuse - Travel History Recent Travel in the [place] Within the Last 8 Weeks: No Recent Travel Out of the Country Within the Last 8 Weeks: No - Immunization History Tetanus Immunization: Unsure Hx Influenza Vaccine This Season: No Medications and Allergies Active Medications: Active Medications Atorvastatin Calcium (Lipitor) 20 mg PO DAILY [facility] Last Admin: 07/11/18 10:18 Dose: 20 mg Ceftriaxone Sodium 1,000 mg/ (Sodium Chloride) 100 mls @ 200 mls/hr IV.SIG Q24H AIRAM Sodium Chloride (Ns Inj) 1,000 mls @ 70 mls/hr IV.CONT .[id number] [facility] Last Admin: 07/11/18 04:56 Dose: 45 mls/hr Sodium Chloride (Ns Flush) 2 ml IV.FLUSH BID [facility] Last Admin: 07/11/18 10:18 Dose: 2 ml Sodium Chloride (Ns Flush) 2 ml IV.FLUSH PRN PRN PRN Reason: FLUSH AFTER USING IV ACCESS Tamsulosin HCl (Flomax) 0.4 mg PO DAILY [facility] Allergies Allergy/AdvReac Type Severity Reaction Status Date / Time No Known Allergies Allergy Verified 07/10/18 23:49 Home Medications Medication Instructions Recorded Confirmed Type Lactobacillus acidophilus 1 tab PO TID 06/01/18 07/10/18 History [Acidophilus] Saccharomyces boulardii [Florastor] 250 mg PO TID 06/01/18 07/10/18 History zwzkdzfpjg-qeqteenxmp-swb-cod 1 cap PO Q8HR PRN 06/01/18 07/10/18 History calcium carbonate [Calcium 600] 600 mg PO DAILY 06/01/18 07/10/18 History famotidine [Pepcid] 20 mg PO BID 06/01/18 07/10/18 History gabapentin 300 mg PO TID 06/01/18 07/10/18 History lisinopril 5 mg PO DAILY 06/01/18 07/10/18 History magnesium hydroxide [Milk of 30 ml PO BID 06/01/18 07/10/18 History Magnesia] meclizine 25 mg PO Q8HR PRN 06/01/18 07/10/18 History methocarbamol 500 mg PO Q8HR PRN 06/01/18 07/10/18 History Physical Exam Vital Signs - 24 hr 07/10/18 23:36 07/11/18 00:17 07/11/18 04:00 Temperature 97.4 F L 97.4 F L Pulse Rate 111 H 100 H 80 Respiratory Rate 18 20 20 Blood Pressure 80/50 L 91/53 L 66/40 L Pulse Oximetry 97 99 100 07/11/18 05:42 07/11/18 08:00 07/11/18 09:09 Temperature 97.6 F Pulse Rate 94 H 96 H Respiratory Rate 16 Blood Pressure 76/47 L 81/48 L Pulse Oximetry 99 07/11/18 10:24 07/11/18 12:00 Temperature 98.3 F Pulse Rate 104 H Respiratory Rate 18 16 Blood Pressure 82/45 L Pulse Oximetry Physical Exam: GENERAL: This is a well-nourished, well-developed patient, in no apparent distress. SKIN: No rashes, ecchymoses or lesions. Cool and dry. HEAD: Atraumatic. Normocephalic. No temporal or scalp tenderness. EYES: Pupils equal round and reactive. Extraocular motions intact. No scleral icterus. No injection or drainage. ENT: Nose without bleeding, purulent drainage or septal hematoma. Throat without erythema, tonsillar hypertrophy or exudate. Uvula midline. Airway patent. NECK: Trachea midline. No JVD or lymphadenopathy. Supple, nontender, no meningeal signs. CARDIOVASCULAR: Regular rate and rhythm without murmurs, gallops, or rubs. RESPIRATORY: Clear to auscultation. Breath sounds equal bilaterally. No wheezes , rales, or rhonchi. GASTROINTESTINAL: Abdomen soft, non-tender, nondistended. No hepato-splenomegaly , or palpable masses. No guarding. GENITOURINARY: No CVA tenderness, bladder not distended MUSCULOSKELETAL: Extremities without clubbing, cyanosis, or edema. No joint tenderness, effusion, or edema noted. No calf tenderness. Negative Homans sign bilaterally. NEUROLOGICAL: Awake and alert. Cranial nerves II through XII intact. Motor and sensory grossly within normal limits. Five out of 5 muscle strength in all muscle groups. Normal speech. Laboratory Results - last 24 hr 07/10/18 07/10/18 07/10/18 23:59 23:59 23:59 WBC 15.9 H RBC 3.45 L Hgb 10.6 L Hct 31.0 L MCV 89.8 MCH 30.8 MCHC 34.3 RDW 14.7 Plt Count 320 MPV 8.2 Neut % (Auto) 70.2 H Lymph % (Auto) 18.5 Stevens % (Auto) 7.4 Eos % (Auto) 3.5 Baso % (Auto) 0.4 Neut # (Auto) 11.2 H Lymph # (Auto) 2.9 Stevens # (Auto) 1.2 H Eos # (Auto) 0.5 H Baso # (Auto) 0.1 WBC Differential . Differential Comment Auto diff final Sodium 141 Potassium 4.1 Chloride 109 H Carbon Dioxide 22.1 Anion Gap 10 BUN 32 H Creatinine 2.74 H Estimated GFR 18 L Random Glucose 96 Lactic Acid 1.3 Calcium 9.0 Total Bilirubin 0.3 AST 12 L ALT 16 Alkaline Phosphatase 99 Total Protein 8.1 Albumin 3.5 Urine Color Urine Clarity Urine pH Ur Specific [place] Urine Protein Urine Glucose (UA) Urine Ketones Urine Occult Blood Urine Nitrate Urine Bilirubin Urine Urobilinogen Ur Leukocyte Esterase Urine RBC Urine WBC Urine WBC Clumps Ur Renal Epithelial Cell Urine Mucus Micro UA Comment Ur Microscopic Review Urine Culture Comments 07/11/18 01:30 WBC RBC Hgb Hct MCV MCH MCHC RDW Plt Count MPV Neut % (Auto) Lymph % (Auto) Stevens % (Auto) Eos % (Auto) Baso % (Auto) Neut # (Auto) Lymph # (Auto) Stevens # (Auto) Eos # (Auto) Baso # (Auto) WBC Differential Differential Comment Sodium Potassium Chloride Carbon Dioxide Anion Gap BUN Creatinine Estimated GFR Random Glucose Lactic Acid Calcium Total Bilirubin AST ALT Alkaline Phosphatase Total Protein Albumin Urine Color Yellow Urine Clarity Turbid H Urine pH 5.0 Ur Specific [place] 1.021 Urine Protein 100 H Urine Glucose (UA) Negative Urine Ketones Negative Urine Occult Blood Moderate H Urine Nitrate Negative Urine Bilirubin Negative Urine Urobilinogen Less than 2 Ur Leukocyte Esterase Moderate H Urine RBC 72 H Urine WBC Urine WBC Clumps Many H Ur Renal Epithelial Cell 4 Urine Mucus Few H Micro UA Comment Culture indicated Ur Microscopic Review Not Reportable Urine Culture Comments Culture indicated Result Diagrams: 07/10/18 23:59 07/10/18 23:59 Imaging: ITS Impressions Abdomen/Pelvis CT 07/11/18 01:04 CONCLUSION: Right ureteral stent present as described. A persistent stone in the right renal pelvis. Mild prominence of the renal pelvis but no calyceal distention. Assessment and Plan - Assessment (1) Renal calculus, right Code(s): N20.0 - Calculus of kidney Status: Acute - Plan Urologic impression: 1. 12 mm right renal pelvis calculus 2. Status post right ureteral stent placement 3. Present symptoms related to stent irritation and possible UTI Recommendations: 1. Agree with present antibiotic therapy 2. [facility] from [facility] with instructions to follow-up with Dr. Ulloa for ongoing outpatient care to include shockwave lithotripsy. 3. Tamsulosin 0.4 mg by mouth daily to alleviate some of the stent irritative symptoms.
[2018-07-11] MEDS: Acetaminophen 500 MG Tablet PO PRN ×2 (15:26→21:41)
[2018-07-11] MEDS ORDERED: [UNRECOGNIZED DRUG - OTHER] PO PRN (16:13)
[2018-07-11] MEDS ORDERED: Methocarbamol 500 MG Tablet PO PRN (16:13)
[2018-07-11] MEDS: Gabapentin 300 MG Capsule PO SCH (17:52)
[2018-07-11] MEDS: Carvedilol 6.25 MG Tablet PO SCH (20:59)
[2018-07-11] MEDS: Famotidine 20 MG Tablet PO SCH (21:07)
[2018-07-11] MEDS ORDERED: Sodium Chloride 0.65% Nasal Spray 45 ML Bottle EACH NARE ONE (21:46)
[2018-07-12] MEDS ORDERED: Hydrocortisone Sod Succinate 100 MG Vial IV.PUSH SCH
[2018-07-12] MEDS: Sod Chloride 0.9% Inj 1,000 ML IV.CONT SCH ×2 (03:29→21:48)
[2018-07-12] MEDS ORDERED: Sodium Chlor 0.9% Inj 500 ML IV.SIG SCH (06:00)
--- NOTE | 2018-07-12 06:24 | P.CONCA ---
History of Present Illness Consult date: 07/11/18 Reason for Consult: Hx of CHF Primary Care Provider: No Primary Care Physician Family Provider: No Primary Care Physician History of Present Illness: Mrs. 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 She denies any complaints of chest pain or shortness of breath.She has a history of Ureteral stent and comes in with UTI and was started on antibiotics. Her Lisinopril was held secondary to CKD. She currently has a life vest with plans to follow up for a repeat echo in 2 months. Review of Systems All other systems reviewed negative except as stated in HPI PMFSH - History History Provided By: Patient - Medical History Medical History: Medical History (Last Reviewed 07/11/18 @ 04:59 by Kerline Santizo MD) C1 cervical fracture Tibial plateau fracture Fracture of right ulna Left ankle injury Left knee injury Right radial fracture - Family History Family History: Family History (Last Reviewed 07/11/18 @ 04:59 by Kerline Santizo MD) Mother CAD (coronary artery disease) Stroke Father CAD (coronary artery disease) - Tobacco History Second Hand Smoke Exposure: No Tobacco Use In Past 30 Days: No Smoking Status: Former smoker - Alcohol History How Often Do You Have a Drink Containing Alcohol: Monthly or less - Substance Use History Substance History: No History of Abuse - Travel History Recent Travel in the [place] Within the Last 8 Weeks: No Recent Travel Out of the Country Within the Last 8 Weeks: No - Immunization History Tetanus Immunization: Unsure Hx Influenza Vaccine This Season: No Medications and Allergies Active Medications: Active Medications Acetaminophen (Tylenol) 1,000 mg PO Q6H PRN PRN Reason: HEADACHE/FEVER Last Admin: 07/11/18 21:41 Dose: 1,000 mg Atorvastatin Calcium (Lipitor) 20 mg PO DAILY [facility] Last Admin: 07/11/18 10:18 Dose: 20 mg Carvedilol (Coreg) 6.25 mg PO BID [facility] Last Admin: 07/11/18 20:59 Dose: Not Given Famotidine (Pepcid) 20 mg PO BID [facility] Last Admin: 07/11/18 21:07 Dose: 20 mg Gabapentin (Neurontin) 300 mg PO TID [facility] Last Admin: 07/11/18 17:52 Dose: 300 mg Ceftriaxone Sodium 1,000 mg/ (Sodium Chloride) 100 mls @ 200 mls/hr IV.SIG Q24H [facility] Last Infusion: 07/12/18 03:49 Dose: Infused Sodium Chloride (Ns Inj) 1,000 mls @ 50 mls/hr IV.CONT .Q20H [facility] Last Admin: 07/12/18 03:29 Dose: 50 mls/hr Sodium Chloride (Ns Inj) 500 mls @ 0 mls/hr IV.SIG BOLUS [facility] Last Admin: 07/12/18 05:23 Dose: 1,000 mls/hr Lactobacillus Acidophilus (Lactinex Pkt) 1 gm PO Q8HR [facility] Last Admin: 07/12/18 05:23 Dose: Not Given Lisinopril (Prinivil) 5 mg PO DAILY [facility] Meclizine HCl (Antivert) 25 mg PO Q8HR PRN PRN Reason: Dizziness Methocarbamol (Robaxin) 500 mg PO Q8HR PRN PRN Reason: Muscle Spasm Sodium Chloride (Ns Flush) 2 ml IV.FLUSH BID [facility] Last Admin: 07/11/18 21:10 Dose: Not Given Sodium Chloride (Ns Flush) 2 ml IV.FLUSH PRN PRN PRN Reason: FLUSH AFTER USING IV ACCESS Tamsulosin HCl (Flomax) 0.4 mg PO DAILY [facility] Last Admin: 07/11/18 14:55 Dose: 0.4 mg Allergies Allergy/AdvReac Type Severity Reaction Status Date / Time No Known Allergies Allergy Verified 07/10/18 23:49 Home Medications Medication Instructions Recorded Confirmed Type Lactobacillus acidophilus 1 tab PO TID 06/01/18 07/10/18 History [Acidophilus] Saccharomyces boulardii [Florastor] 250 mg PO TID 06/01/18 07/10/18 History dpggsmugaj-ohufzrllpr-pag-cod 1 cap PO Q8HR PRN 06/01/18 07/10/18 History calcium carbonate [Calcium 600] 600 mg PO DAILY 06/01/18 07/10/18 History famotidine [Pepcid] 20 mg PO BID 06/01/18 07/10/18 History gabapentin 300 mg PO TID 06/01/18 07/10/18 History lisinopril 5 mg PO DAILY 06/01/18 07/10/18 History magnesium hydroxide [Milk of 30 ml PO BID 06/01/18 07/10/18 History Magnesia] meclizine 25 mg PO Q8HR PRN 06/01/18 07/10/18 History methocarbamol 500 mg PO Q8HR PRN 06/01/18 07/10/18 History Exam Vital signs: Vital Signs 07/11/18 08:00 07/11/18 09:09 07/11/18 10:24 Temperature 97.6 F Pulse Rate 94 H 96 H Respiratory Rate 16 18 Blood Pressure 81/48 L Pulse Oximetry 99 07/11/18 12:00 07/11/18 16:00 07/11/18 20:00 Temperature 98.3 F 98.6 F 97.9 F Pulse Rate 104 H 98 H 109 H Respiratory Rate 16 16 20 Blood Pressure 82/45 L 93/69 L 73/48 L Pulse Oximetry 100 98 07/11/18 23:50 07/12/18 02:07 07/12/18 03:54 Temperature 98.6 F 98.3 F Pulse Rate 95 H 98 H 91 H Respiratory Rate 16 18 18 Blood Pressure 68/44 L 78/52 L 70/42 L Pulse Oximetry 96 95 96 Intake & Output 07/11/18 07/11/18 07/12/18 06:59 18:59 06:59 Intake Total 600 / 600 1350 / 1350 Balance 600 / 600 1350 / 1350 Weight 54.431 kg Intake: IV 600 / 600 1350 / 1350 NS Inj 1,000 ML @ 50 mls/hr IV. 1000 / 1000 CONT .Q20H AIRAM Rx#:[id number] NS Inj 250 ML @ Wide Open IV. 500 / 500 250 / 250 SIG BOLUS ONE Rx#:[id number] Rocephin Inj 1,000 MG In NS Inj 100 / 100 100 / 100 100 ML @ 200 mls/hr IV.SIG Q24H AIRAM Rx#:[id number] Oral 0 / 0 Other: # Voids 2 Date of Last Bowel Movement 07/10/18 07/11/18 - Constitutional no acute distress (wearing a C collar) - Routine HEENT Exam Head: Present: normocephalic Eye: Present: EOMI ENT: Present: mucous membranes moist - Routine Neck Exam Present: supple - Routine Respiratory Exam Present: CTA bilaterally - Routine Cardiovascular Exam Present: RRR, S1, S2 (2/6 JAVIER over apex) - Routine Abdominal Exam Present: soft, normoactive bowel sounds - Routine Neurological Exam Present: alert, oriented X3 Results 07/10/18 23:59 07/10/18 23:59 Intake and Output 07/11/18 07/11/18 07/12/18 14:59 22:59 06:59 Intake Total 250 / 250 1100 / 1100 Balance 250 / 250 1100 / 1100 Intake: IV 250 / 250 1100 / 1100 NS Inj 1,000 ML @ 50 mls/hr IV. 1000 / 1000 CONT .Q20H AIRAM Rx#:[id number] NS Inj 250 ML @ Wide Open IV. 250 / 250 SIG BOLUS ONE Rx#:[id number] Rocephin Inj 1,000 MG In NS Inj 100 / 100 100 ML @ 200 mls/hr IV.SIG Q24H AIRAM Rx#:[id number] Other: Date of Last Bowel Movement 07/11/18 Assessment and Plan - Plan Hx of NIDCM EF 25% Pyelonephritis Acute Renal Failure 2/2 to obstructive nephropathy Currently does not appear to be volume overloaded. She is on antibiotics with plans to discharge with follow up. Would hold COCO-i and continue coreg. She would likely benefit from spironolactone as an outpatient when her renal function normalizes. She can resume COCO-i as an outpatient when her renal function improves. She will follow up with [facility] for a repeat echo as an outpatient. Will need to follow repeat BMP.
[2018-07-12 07:17] LABS: Baso % (Auto) 0.1 % (0.0-2.0); Eos # (Auto) 0.1 th/mm3 (0.0-0.4); Hematocrit 28.1 % (35.0-46.0); Hemoglobin 9.4 gm/dL (11.6-15.3); Lymph # (Auto) 1.2 th/mm3 (1.0-4.8); Lymph % (Auto) 12.6 % (9.0-44.0); Mean Corpuscular HGB Conc 33.5 % (32.0-36.0); Mean Corpuscular Hemoglobin 30.5 pg (27.0-34.0); Mean Platelet Volume 8.1 fL (7.0-11.0); Mono # (Auto) 0.3 th/mm3 (0.0-0.9); Mono % (Auto) 3.4 % (0.0-8.0); Neut # (Auto) 7.6 th/mm3 (1.8-7.7); Neut % (Auto) 82.9 % (16.0-70.0); Platelet Count 269 th/mm3 (150-450); Red Blood Count 3.08 mil/mm3 (4.00-5.30); Red Cell Distribution Width 14.6 % (11.6-17.2); White Blood Count 9.1 th/mm3 (4.0-11.0)
[2018-07-12 08:15] LABS: Alanine Aminotransferase 11 U/L (10-53); Albumin 2.5 g/dL (3.4-5.0); Alkaline Phosphatase 82 U/L (45-117); Anion Gap 10 meq/L (5-15); Aspartate Aminotransferase 7 U/L (15-37); Blood Urea Nitrogen 31 mg/dL (7-18); Calcium 8.4 mg/dL (8.5-10.1); Carbon Dioxide 17.8 meq/L (21.0-32.0); Chloride 117 meq/L (98-107); Glomerular Filtration Rate 32 mL/min (>89); Glucose,Random 113 mg/dL (74-106); Potassium 4.3 meq/L (3.5-5.1); Sodium 145 meq/L (136-145); Total Protein 6.3 g/dL (6.4-8.2)
[2018-07-12] MEDS: Gabapentin 300 MG Capsule PO SCH ×3 (08:45→18:52)
[2018-07-12] MEDS: Famotidine 20 MG Tablet PO SCH ×2 (08:45→20:49)
[2018-07-12] MEDS: Carvedilol 6.25 MG Tablet PO SCH (08:46)
[2018-07-12] MEDS ORDERED: Lisinopril 5 MG Tablet PO SCH (09:00)
[2018-07-12] MEDS ORDERED: Albumin Human 25% Inj 100 ML IV.SIG SCH (12:00)
--- NOTE | 2018-07-12 12:06 | P.PN ---
Subjective Interval history: Follow-up visit urinary tract infection, acute kidney injury, history of kidney stones, status post renal stent with removal 1 week. Patient seen and examined today. Patient states she is feeling a lot better. Pain is controlled. Denies SOB/ dyspnea. Denies chest pain, palpitations, headaches, dizziness. Denies fevers, chills, n/v/d. Denies hematuria, dysuria. Physical Exam Vital signs: Vital Signs 07/11/18 16:00 07/11/18 20:00 07/11/18 23:50 Temperature 98.6 F 97.9 F 98.6 F Pulse Rate 98 H 109 H 95 H Respiratory Rate 16 20 16 Blood Pressure 93/69 L 73/48 L 68/44 L Pulse Oximetry 100 98 96 07/12/18 02:07 07/12/18 03:54 07/12/18 08:00 Temperature 98.3 F 97.3 F L Pulse Rate 98 H 91 H 93 H Respiratory Rate 18 18 18 Blood Pressure 78/52 L 70/42 L 88/57 L Pulse Oximetry 95 96 97 Intake & Output 07/11/18 07/12/18 07/12/18 18:59 06:59 18:59 Intake Total 1850 / 1850 Balance 1850 / 1850 Intake: IV 1850 / 1850 NS Inj 1,000 ML @ 50 mls/hr IV. 1000 / 1000 CONT .Q20H AIRAM Rx#:[id number] NS Inj 250 ML @ Wide Open IV. 250 / 250 SIG BOLUS ONE Rx#:[id number] NS Inj 500 ML @ Wide Open IV. 500 / 500 SIG BOLUS AIRAM Rx#:[id number] Rocephin Inj 1,000 MG In NS Inj 100 / 100 100 ML @ 200 mls/hr IV.SIG Q24H AIRAM Rx#:[id number] Other: # Voids 4 Date of Last Bowel Movement 07/11/18 Narrative: GENERAL: This is a well-nourished, well-developed patient, in no apparent distress. SKIN: Warm and dry. HEENT: Normocephalic. Pupils equal round and reactive. Nose without bleeding. Airway patent. NECK: Trachea midline. Nolan J collar in place. CARDIOVASCULAR: Regular rate and rhythm without murmurs, gallops, or rubs. RESPIRATORY: Diminished BS. No wheezes, rales, or rhonchi. GASTROINTESTINAL: Abdomen soft, non-tender, nondistended. Bowel Sounds normoactive x4. MUSCULOSKELETAL: Extremities without clubbing, cyanosis, or edema. NEUROLOGICAL: Awake and alert. Oriented to time, place, person. No focal neuro deficit. Moves all extremities. Normal speech. Results - Labs CBC & Chem 7: 07/12/18 06:22 07/12/18 06:22 Laboratory Results - last 24 hr 07/12/18 07/12/18 07/12/18 00:14 06:22 06:22 WBC 9.1 RBC 3.08 L Hgb 9.4 L Hct 28.1 L MCV 91.0 MCH 30.5 MCHC 33.5 RDW 14.6 Plt Count 269 MPV 8.1 Neut % (Auto) 82.9 H Lymph % (Auto) 12.6 Turner % (Auto) 3.4 Eos % (Auto) 1.0 Baso % (Auto) 0.1 Neut # (Auto) 7.6 Lymph # (Auto) 1.2 Turner # (Auto) 0.3 Eos # (Auto) 0.1 Baso # (Auto) 0.0 WBC Differential . Differential Comment Auto diff final Sodium 145 Potassium 4.3 Chloride 117 H D Carbon Dioxide 17.8 L Anion Gap 10 BUN 31 H Creatinine 1.66 H Estimated GFR 32 L Random Glucose 113 H Calcium 8.4 L Total Bilirubin 0.2 AST 7 L ALT 11 Alkaline Phosphatase 82 Total Protein 6.3 L D Albumin 2.5 L D Cortisol 62.5 Assessment and Plan - Plan 58-year-old female with a history of kidney stones in the past status post renal stenting with removal who presents with a one-week history of urinary urgency, constant right-sided flank pain, subsequently left-sided flank pain. Sepsis, SIRS Pyelonephritis, bilateral nephrolithiasis causing moderate obstruction seen on CT Urinary tract infection -Continue Rocephin for now. -Urine culture showing gram-negative rods, [place]. Continue Rocephin. Pending sensitivities. -Consulted urology. Recommends Flomax daily, antibiotic therapy to continue. May discharge [facility] from [facility] and follow-up with Dr. Ulloa. Possible plan for shockwave lithotripsy. -Leukocytosis is improved. Kidney function has improved. Acute kidney injury -Possibly sepsis related. IV fluids for hydration. -Avoid nephrotoxins. Hold furosemide, potassium, bethanechol, lisinopril -Follow renal indicis History of CHF HTN, now with hypotension HLD -Appears to be not in exacerbation -continue home medication Coreg with parameters, atorvastatin -LifeVest in place. Recent cardiac catheterization -ECHO EF 20%, monitor for fluid overload. -Hypotension noted, gentle IVF hydration. Monitor renal indices DVT Prop SCD Code Status: Full code Discussed Condition With: Patient, nurse Discharge Planning: Plan to DC home when clinically improved -hypotensive, pending sensitivities
[2018-07-12] MEDS: Albumin Human 25% Inj 100 ML IV.SIG SCH (14:25)
[2018-07-13] MEDS: Albumin Human 25% Inj 100 ML IV.SIG SCH (03:06)
[2018-07-13 09:11] VITALS: BP 104/60; PULSE 104; RESP 17; TEMP 98; O2SAT 95
[2018-07-13 09:12] LABS: Calcium 8.5 mg/dL (8.5-10.1); Carbon Dioxide 18.7 meq/L (21.0-32.0); Potassium 3.7 meq/L (3.5-5.1)
[2018-07-13] MEDS: Famotidine 20 MG Tablet PO SCH (10:08)
[2018-07-13] MEDS: Gabapentin 300 MG Capsule PO SCH (10:08)
--- NOTE | 2018-07-13 11:00 | P.DS ---
Date of admission: 07/11/18 02:59 Primary care physician: No Primary Care Physician Brief History from admission: 58-year-old female with a history of kidney stones in the past status post renal stenting with removal who presents with a one-week history of urinary urgency, constant right-sided flank pain, subsequently left-sided flank pain. Denies any nausea, vomiting, DS: Diagnosis - Discharge Diagnosis (1) Sepsis Status: Acute (2) Acute renal failure Status: Acute (3) Kidney stone Status: Acute (4) Thrombocytopenia Status: Acute (5) Left knee injury Status: Acute (6) Fracture of right ulna Status: Acute (7) Right radial fracture Status: Acute (8) Mild neurocognitive disorder Status: Acute DS: Medications - Discharge Medications Prescriptions: carvedilol [Coreg] 3.125 mg PO BID #60 tab ciprofloxacin HCl [Cipro] 500 mg PO Q12H #14 tab fluconazole [Diflucan] 100 mg PO DAILY #30 tab tamsulosin 0.4 mg PO HS #30 cap DS: Summary Hospital Course: 58-year-old female with a history of kidney stones in the past status post renal stenting with removal who presents with a one-week history of urinary urgency, constant right-sided flank pain, subsequently left-sided flank pain. Sepsis, SIRS. Resolved. Pyelonephritis, bilateral nephrolithiasis causing moderate obstruction seen on CT Urinary tract infection complicated with pyelo -Urine culture showing gram-negative rods- Citrobacter freundii, [place]. Received Rocephin IV. Ciprofloxacin and diflucan po at DC. -Consulted urology. Recommends Flomax daily, antibiotic therapy to continue. May discharge home from Urology perspective and follow-up with Dr. Ulloa. Possible plan for shockwave lithotripsy. -Leukocytosis is improved. Kidney function has improved. Hold lisinopril. Lisinopril and spironolactone to be started as OP per cardiology when kidney function improves. Acute kidney injury -Possibly sepsis related. IV fluids for hydration. -Avoid nephrotoxins. Hold furosemide, potassium, bethanechol, lisinopril -Follow renal indicis. Improved. History of CHF. Systolic CHF with EF of 20 % HTN, however noted hypotensive HLD -Appears to be not in exacerbation -continue home medication Coreg with parameters, atorvastatin -LifeVest in place. Recent cardiac catheterization -ECHO EF 20%, monitor for fluid overload. Lisinopril and spironolactone to be started as OP per cardiology when kidney function improves and if BP permits. -Hypotension noted, gentle IVF hydration. Resolved. Continue carvedilol, decreased dose to 3/125 mg bid to continue at home. Monitor renal indices Cleared by cardiology and urology for DC to follow up as OP with PCP and consultants. DC home in stable condition to follow up as OP with PCP and consultants. - Time Spent with Patient Total time spent providing and/or coordinating discharge services: Greater than 30 minutes - Quality: VTE Deep Vein Thrombosis/Pulmonary Embolism Present on Admission: No Exam Vital signs: Vital Signs 07/12/18 12:00 07/12/18 16:00 07/12/18 20:00 Temperature 97.6 F 98.7 F 97.8 F Pulse Rate 99 H 105 H 105 H Respiratory Rate 18 18 20 Blood Pressure 83/51 L 105/55 L 122/58 L Pulse Oximetry 97 100 99 07/13/18 00:00 07/13/18 04:00 07/13/18 08:00 Temperature 98.2 F 97.0 F L 98.0 F Pulse Rate 104 H 102 H 104 H Respiratory Rate 18 18 17 Blood Pressure 97/56 L 102/59 L 104/60 Pulse Oximetry 96 98 95 Intake & Output 07/12/18 07/13/18 07/13/18 18:59 06:59 18:59 Intake Total 100 / 100 1880 / 1880 Balance 100 / 100 1880 / 1880 Intake: IV 100 / 100 1200 / 1200 NS Inj 1,000 ML @ 50 mls/hr IV. 1000 / 1000 CONT .Q20H AIRAM Rx#:[id number] Flexbumin 25% Inj 100 ML @ 60 100 / 100 100 / 100 mls/hr IV.SIG Q12H AIRAM Rx#: [id number] Rocephin Inj 1,000 MG In NS Inj 100 / 100 100 ML @ 200 mls/hr IV.SIG Q24H AIRAM Rx#:[id number] Oral 680 / 680 Other: # Voids 4 Date of Last Bowel Movement 07/11/18 07/11/18 Narrative: GENERAL: This is a well-nourished, well-developed patient, in no apparent distress. SKIN: Warm and dry. HEENT: Normocephalic. Pupils equal round and reactive. Nose without bleeding. Airway patent. NECK: Trachea midline. [place] J collar in place. CARDIOVASCULAR: Regular rate and rhythm without murmurs, gallops, or rubs. RESPIRATORY: Diminished BS. No wheezes, rales, or rhonchi. GASTROINTESTINAL: Abdomen soft, non-tender, nondistended. Bowel Sounds normoactive x4. MUSCULOSKELETAL: Extremities without clubbing, cyanosis, or edema. NEUROLOGICAL: Awake and alert. Oriented to time, place, person. No focal neuro deficit. Moves all extremities. Normal speech. Results Procedures completed during hospitalization: none Labs on day of discharge: Labs from last 24 hours 07/13/18 07/11/18 07:15 01:30 Sodium 147 H Potassium 3.7 Chloride 115 H Carbon Dioxide 18.7 L Anion Gap 13 BUN 15 Creatinine 1.04 H Estimated GFR 54 L Random Glucose 84 Calcium 8.5 Urine Color Yellow Urine Clarity Turbid H Urine pH 5.0 Ur Specific [place] 1.021 Urine Protein 100 H Urine Glucose (UA) Negative Urine Ketones Negative Urine Occult Blood Moderate H Urine Nitrate Negative Urine Bilirubin Negative Urine Urobilinogen Less than 2 Ur Leukocyte Esterase Moderate H Urine RBC 72 H Urine WBC Urine WBC Clumps Many H Ur Renal Epithelial Cell 4 Urine Mucus Few H Micro UA Comment Culture indicated Urine Culture Comments Culture indicated - Impressions ITS Impressions Abdomen/Pelvis CT 07/11/18 01:04 CONCLUSION: Right ureteral stent present as described. A persistent stone in the right renal pelvis. Mild prominence of the renal pelvis but no calyceal distention. Discharge Plan - Discharge Disposition Patient Disposition: Discharge Home - Discharge Condition Condition: Stable - Discharge Order Discharge Orders: Discharge Order (Routine); Ordered 07/13/18 Ordered By: Radha Mireles - Discharge Details Anticipated Discharge Date: 07/13/18 - Physicians Team Primary Care Provider: Primary Care Radha,Karin Attending Provider: Radha Mireles Other Providers: Graeme Friedman MD ; Mario Severino DO
== END 2018-07-13 16:01 | disposition home or self-care (01) ==
LOC: NEPC 23:30 → NEDA 07-11 02:59 → NEPGCP 07-11 04:05 → N07 07-12 18:54
PROVIDERS: ADMIT Hospitalist; ATTEND Hospitalist